=== PATIENT | female | born 1950 | race Caucasian/White ===

== ENCOUNTER 2019-07-29 12:56 | Inpatient (IN) | payer MEDICARE, SELFPAY ==
--- NOTE | ~2019-07-29 | XR_ITS ---
EXAMINATION: XR chest 1V DATE: 07/29/2019 16:15 INDICATION: Leukocytosis. Weakness. TECHNIQUE: frontal view of the chest was obtained. COMPARISON: Chest radiograph dated 03/08/2019 FINDINGS: Patient is rotated towards the right. Mild streaky bibasilar atelectasis. No pulmonary edema, pleural effusion or pneumothorax. Borderline heart size accounting for AP technique. Dual lead pacemaker see n with leads projecting over the expected locations of the right atrium and right ventricle. Calcifie d right paratracheal lymph node consistent with old granulomatous disease. IMPRESSION: 1. Mild bibasilar atelectasis. Reviewed, dictated and finalized at location A. OR HEALTH EDUCATOR
[2019-07-29 12:58] VITALS: BP 130/114; PULSE 88; RESP 23; TEMP 36.3; O2SAT 100
--- NOTE | 2019-07-29 13:01 | ED.WEAKNESS ---
HPI - Weakness General Chief complaint: Weakness Stated complaint: WEAKNESS Time Seen by Provider: 07/29/19 13:01 Source: patient and RN notes reviewed Mode of arrival: EMS Limitations: altered mental status History of Present Illness HPI Narrative: A 69 y/o female presents to the ED via EMS from home with worsening generalized weakness for the past 4 days. She states that she went home from rehab 4 days ago, after being there for 5 months, but that she has been unable to stand or sit since. She reports associated nausea with dry heaves and decreased intake. She also reports chronic BUE and BLE pain. She denies any fevers, chills, CP, SOB, vomiting, diarrhea, ABD pain, and any other medical complaints at this time. MD Complaint: generalized weakness Onset (ago): day(s) (4) Duration: progressively worsening Location: generalized Associated symptoms: loss of appetite, nausea/vomiting (with dry heaves, no vomiting) and other (chronic BUE and BLE pain) Related Data Home Medications Medication Instructions Recorded Confirmed docusate sodium [Colace] 100 mg PO BID 07/29/19 07/29/19 ergocalciferol (vitamin D2) 50,000 unit PO WEEKLY 07/29/19 07/29/19 [Vitamin D2] gabapentin 300 mg PO TID 07/29/19 07/29/19 ibuprofen 600 mg PO TID 07/29/19 07/29/19 insulin aspart U-100 [Novolog 1 sliding scale dose SUBCUT 07/29/19 07/29/19 U-100 Insulin aspart] USEASDIRECTD insulin glargine [Lantus Solostar 24 unit SUBCUT DAILY 07/29/19 07/29/19 U-100 Insulin] loratadine 10 mg PO DAILY 07/29/19 07/29/19 metoprolol succinate 25 mg PO DAILY 07/29/19 07/29/19 multivit with min-folic acid 0.4 mg PO DAILY 07/29/19 07/29/19 [Adult One Daily Multivitamin] omeprazole 20 mg PO DAILY 07/29/19 07/29/19 ondansetron 4 mg PO Q6H PRN 07/29/19 07/29/19 polyethylene glycol 3350 [Miralax] 17 g PO DAILY 07/29/19 07/29/19 prednisone 5 mg PO DAILY 07/29/19 07/29/19 rivaroxaban [Xarelto] 2.5 mg PO BID 07/29/19 07/29/19 Allergies Allergy/AdvReac Type Severity Reaction Status Date / Time codeine Allergy Intermediate Verified 06/17/17 10:31 Review of Systems Review of Systems: All systems reviewed & are unremarkable except as noted in HPI and below Constitutional: Constitutional: Denies chills, Denies fever(s), Denies headache(s), Reports poor appetite and Denies weakness Eyes: Eyes: Denies blurry vision ENT: Denies headache(s) and Denies neck pain Cardiovascular: Cardiovascular: Denies chest pain and Denies dyspnea Respiratory: Respiratory: Denies cough and Denies dyspnea Gastrointestinal: Gastrointestinal: Denies abdominal pain, Denies diarrhea, Reports nausea (with dry heaves) and Denies vomiting Genitourinary: Genitourinary: Denies hematuria and Denies dysuria Musculoskeletal: Musculoskeletal: Denies back pain, Denies neck pain and Reports other (chronic BUE and BLE pain) Neurologic: Denies headache(s) and Denies weakness [facility] Past Medical History Medical History (Updated 07/29/19 @ 20:27 by Nicolasa Brown MD) Amputation toe Anxiety Arthritis Asthma CHF (congestive heart failure) COPD (chronic obstructive pulmonary disease) DM (diabetes mellitus) DVT (deep venous thrombosis) H/O: HTN (hypertension) Heart murmur History of inguinal hernia History of kidney stones History of pneumonia Hx of fracture of foot Hx: UTI (urinary tract infection) Internal hemorrhoid Peripheral neuropathy Renal disease Shingles Surgical History Surgical History (Updated 07/29/19 @ 15:13 by Ruben Sims) History of appendectomy History of hysterectomy History of inguinal hernia repair History of thyroidectomy History of tonsillectomy Previous section Family History Family History (Updated 06/17/17 @ 00:00 by CONVUSER A) Brother Family history of coronary artery disease Family history of type 2 diabetes mellitus Mother Family history of pancreatic cancer Sister Familial Alzheimer's disease of late onset Social History Social Histor
--- NOTE | 2019-07-29 13:08 | ECG_ITS ---
Measurements Intervals Rarden Rate: 126 P: MS: 0 QRS: -40 QRSD: 92 T: 53 QT: 307 QTc: 446 Interpretive Statements ATRIAL FIBRILLATION WITH RAPID VENTRICULAR RESPONSE VENTRICULAR PREMATURE COMPLEX LEFT AXIS DEVIATION CANNOT RULE OUT SEPTAL INFARCT, AGE INDETERMINATE BORDERLINE ST-T WAVE ABNORMALITY- INF/LAT LEADS BASELINE ARTIFACT- I, III, AVR, AVL, AVF, V1-V3, V5-V6 ABNORMAL ECG Electronically Signed On 07-29-2019 13:29:22 [employer] TEAM MEMBER by Fox Fontaine D.O.
[2019-07-29 13:26] LABS: Basophils Percent Auto 0.2 % (0.2-1.2); Eosinophils Percent Auto 0.1 % (0-4.4); Hematocrit 42.7 % (37.0-47.0); Hemoglobin 14.1 g/dL (12.0-15.0); Immature Granulocyte Absolute 0.12 K/mm3 (0.00-0.031); Immature Granulocyte Percent A 0.6 % (0-0.5); Lymphocytes Absolute Auto 1.31 K/mm3 (0.9-3.2); Lymphocytes Percent Auto 6.8 % (18.3-44.2); Mean Corpuscular Hemoglobin 30.9 pg (26-34); Mean Corpuscular Volume 93.6 fl (80-100); Mean Platelet Volume 10.4 fl (7.4-10.4); Monocytes Absolute Auto 1.3 K/mm3 (0.1-0.6); Monocytes Percent Auto 6.9 % (2.6-8.5); Neutrophils Absolute Auto 16.4 K/mm3 (1.3-6.7); Neutrophils Percent Auto 85.4 % (45.5-73.1); Platelet Count Result 251 k/mm3 (150-375); Red Blood Count 4.56 M/mm3 (4.2-5.4); Red Cell Distribution Width 13.2 % (11.5-14.5); White Blood Count 19.2 K/mm3 (4.5-10.0)
[2019-07-29 13:36] LABS: Add Urine Microscopic? YES; Appearance Urine Clear (Clear); Bacteria Urine Trace /hpf; Bilirubin Urine Negative (Negative); Blood Urine 2+ (Negative); Color Urine Yellow (Yellow); Glucose Urine UA Negative (Negative); Ketones Urine Negative (Negative); Leukocyte Esterase Ur Negative LEU/UL (Negative); Nitrate Urine Negative (Negative); Protein Urine Negative (Negative); RBC Urine 0-2 /hpf (0-2); Urobilinogen Urine Negative mg/dL (<2.0); WBC Urine 0-3 /hpf
[2019-07-29 16:37] LABS: Alanine Aminotransferase 28 U/L (4-35); Albumin Level 3.5 g/dL (3.5-5.1); Alkaline Phosphatase 123 U/L (38-126); Aspartate Amino Transferase 88 U/L (14-36); Blood Urea Nitrogen 25 mg/dL (7-17); Carbon Dioxide 23 mmol/L (22-30); Chloride 105 mmol/L (98-107); Estimated CRCL calculation 48 ml/min; Estimated Glomerular Filt Rate 44; Glucose 187 mg/dL (65-105); Potassium 3.7 mmol/L (3.4-5.0); Sodium 141 mmol/L (137-145)
[2019-07-29 16:44] LABS: Troponin I 0.027 ng/mL (0.000-0.034)
[2019-07-29] MEDS: DILTIAZEM HCL 30 MG TABLET PO (17:44)
[2019-07-29 18:52] VITALS: BP 102/81; PULSE 73; RESP 16; O2SAT 97
[2019-07-29 19:18] VITALS: BP 98/58; PULSE 70; RESP 20; TEMP 36.5; O2SAT 90
--- NOTE | 2019-07-29 19:18 | ADMGEN ---
This patient, Yanira Campa, was admitted to IMU Room 214-01. Patient/family oriented to hospital policies and general routines including ID bracelet, bed and alarms, visiting hours, pain management, procedures, bathroom and other care routines, personal items, smoking policy, room service/diet, and visiting hours. Valuables list has been completed. Information on how to activate the Rapid Response Team has been discussed. Patient/Family are encouraged to report perceived risks to care and to ask questions if they do not understand what they are told or what they should do.
[2019-07-29 19:26] VITALS: PULSE 74
[2019-07-29 20:00] VITALS: PULSE 67
[2019-07-29 20:46] VITALS: BMI 45.1
[2019-07-29 21:02] LABS: Troponin I 0.043 ng/mL (0.000-0.034)
[2019-07-29 21:36] LABS: Glucose Point of Care 191 (65-105)
[2019-07-29 22:00] VITALS: PULSE 63
[2019-07-29 23:38] LABS: Troponin I 0.042 ng/mL (0.000-0.034)
[2019-07-30] VITALS (12 sets, daily range): BP systolic 107–140; BP diastolic 47–74; PULSE 57–79; RESP 16–20; TEMP 36.1–37.1; O2SAT 96–100
--- NOTE | 2019-07-30 | ECHO_ITS ---
Patient Info Name: Yanira Campa Age: 69 years : 1950 Gender: Female Ht: 65 in Wt: 271 lbs BSA: 2.44 m2 HR: 60 bpm BP: 107 / 47 mmHg Technical Quality: Poor Exam Date: 07/30/2019 9:42 AM Exam Location: [facility] Patient Status: Inpatient Admit Date: 07/29/2019 Staff Ordering Physician: Daniel Biggs MD Manager Of Clinical: Karen Young RDCS Attending Provider: Ericka Galeano PA-C Exam Type: CA echo dop color flow w con Study Info Complete two-dimensional, color flow and Doppler transthoracic echocardiogram is performed with contrast to opacify the left ventrical and to improve the deliniation of the left ventrical endocarial boarders. Contrast/Agitated Saline Amount: 2.00 ml Reason for Poor Study: poor echocardiographic windows Summary 1. Left ventricular systolic function is normal, estimated at 65-70%. 2. There is mildly increased left ventricular wall thickness. Left Ventricle Left ventricular chamber dimension is normal. Left ventricular systolic function is normal, estimated at 65-70%. There is mildly increased left ventricular wall thickness. Left ventricular septal wall motion is abnormal with septal motion related to bundle branch block. The left ventricular diastolic function is grade I diastolic dysfunction. Right Ventricle Right ventricular chamber dimension is normal. Right ventricular systolic function is normal. Left Atria Left atrial chamber dimension is mildly enlarged. Right Atria Right atrial chamber dimension is normal. Aortic Valve The aortic valve is trileaflet. There is no aortic valve sclerosis. There is no aortic valve stenosis. There is no aortic valve regurgitation. Pulmonic Valve The pulmonic valve is normal. There is no pulmonic valve stenosis. There is no pulmonic regurgitation. Mitral Valve The mitral valve has normal leaflets. There is no mitral valve stenosis. There is no mitral valve regurgitation. Tricuspid Valve The tricuspid valve leaflets are normal. There is no significant tricuspid valve stenosis. There is no tricuspid valve regurgitation. Pericardium/Pleural The pericardium appears normal. There is no pericardial effusion. Aorta The aortic root size at the sinus of Valsalva is normal. The prox ascending aorta size is normal. Left Ventricular Outflow Tract Name Value Normal LVOT 2D LVOT Diameter 2.34 cm LVOT Doppler LVOT Peak Velocity 116.69 cm/s LVOT Peak Gradient 5 mmHg LVOT Mean Gradient 2 mmHg LVOT VTI 19.29 cm LVOT VTI/AV VTI Ratio 0.74 LVOT Stroke Volume 83.22 ml LVOT CO 4.97 l/min LVOT CI 2.03 L/min/m2 Pulmonic Valve Name Value Normal PV Doppler
[2019-07-30 01:59] LABS: Alveolar/Arterial O2 Gradient 49.5 mmHg; Carboxyhemoglobin 0.9 % THb (0-2.0); Device ROOM AIR; Fractional Inspired Oxygen 21 %; HCO3 ABG 23.2 mEq/l (22.0-26.0); Methemoglobin ABG 0.2 %THb (0-1.5); Modified Allen's Test Pass; Oxygen Content ABG 16.6 %vol (16.0-22.0); Oxygen Saturation ABG 92.7 % (95.0-100.0); Oxyhemoglobin 91.3 % THb (90.0-100.0); PCO2 ABG 33.3 mmHg (35.0-45.0); PO2 ABG 60.4 mmHg (80.0-100.0); PO2 FiO2 Ratio Arterial Blood 2.88 %; Reduced Hemoglobin 7.6 %THb (0-5.0); Site Drawn RIGHT RADIAL; Total Hemoglobin 12.9 g/dL (12.0-18.0); pH ABG 7.461 (7.350-7.450)
[2019-07-30 07:47] LABS: Glucose Point of Care 178 (65-105)
[2019-07-30] MEDS: RIVAROXABAN 2.5 MG TABLET PO ×2 (08:33→17:53)
[2019-07-30] MEDS: DOCUSATE SODIUM 100 MG CAPSULE PO ×2 (08:33→17:53)
[2019-07-30] MEDS: LORATADINE 10 MG TABLET PO (08:33)
[2019-07-30] MEDS: GABAPENTIN 300 MG CAPSULE PO ×3 (08:33→17:53)
[2019-07-30] MEDS: PANTOPRAZOLE SOD SESQUIHYDRATE 20 MG TAB PO (08:33)
[2019-07-30] MEDS: predniSONE 5 MG TABLET PO (08:33)
[2019-07-30] MEDS: THERAPEUTIC MULTIVITAMINS/MINERALS TAB (*BKC) 1 TABLET PO (08:34)
[2019-07-30] MEDS: polyethylene glycoL 3350 17 GM POWD.PACK PO (08:34)
[2019-07-30] MEDS: INSULIN GLARGINE (*BKC) 100 UNITS/ML 24 UNITS SUB-Q (08:40)
--- NOTE | 2019-07-30 09:47 | PM.CNCAR ---
Assessment and Plan Assessment and plan (1) Paroxysmal atrial fibrillation: Code(s): I48.0 - Paroxysmal atrial fibrillation Status: Acute Assessment and Plan: She was on metoprolol and Xarelto, we added Cardizem for better rate control, currently she is back and paced rhythm (2) Weakness: Code(s): R53.1 - Weakness Status: Acute Assessment and Plan: Could be due to flow, will get echocardiogram to evaluate current status of left ventricular systolic function (3) Influenza A: Code(s): J10.1 - Influenza due to other identified influenza virus with other respiratory manifestations Status: Acute (4) Diastolic congestive heart failure: Code(s): I50.30 - Unspecified diastolic (congestive) heart failure Status: Acute Assessment and Plan: Will get echocardiogram and proceed with diuresis, follow up input Va sleep closely (5) Sick sinus syndrome: Code(s): I49.5 - Sick sinus syndrome Status: Acute Assessment and Plan: Status post recent pacemaker, seems to be pacing appropriately, will continue to follow Additional Plan Thank you for allowing me to participate in this patient's care, I will be following up with you. Please do not hesitate to call me for any other inquiry History of Present Illness History of Present Illness Consult date/time: 07/30/19 09:47 69-year-old lady with history of known sick sinus syndrome status post pacemaker placement, history of diabetes mellitus, and proximal atrial fibrillation came to the hospital because of weakness shortness of breath and cough, noted to have flu-like symptoms with possible influenza pneumonia, had episode of atrial fibrillation with rapid ventricular response, subsequently converted to sinus rhythm, currently she is in atrial paced rhythm, she had sick sinus syndrome with pacemaker placement recently, and that time she had atrial fibrillation also. We started on p.o. Cardizem and she is currently feeling okay. She is also on metoprolol, and Xarelto. She still has some cough and feeling generalized weakness due to flu, but no recent palpitation no syncope. Reason For Visit: a fib with RVR/weakness PMFSH Past Medical History Medical History (Updated 07/30/19 @ 09:49 by Daniel Biggs MD) Anxiety Arthritis Asthma COPD (chronic obstructive pulmonary disease) Diastolic CHF With grade 2 diastolic dysfunction noted on echocardiogram March 2017 but most recent echo January 2019 demonstrated normal diastolic function with EF of 60-65% DM (diabetes mellitus) Hemoglobin A1c October 2018 was 13.4 hemoglobin A1c February 2019 was 7.1 DVT (deep venous thrombosis) In 2004 due to prolonged inactivity Essential hypertension Heart murmur History of kidney stones History of pneumonia Hx of fracture of foot Internal hemorrhoid Noted on colonoscopy February 2015 Peripheral neuropathy With history complicated by prior diabetic foot wound Peripheral vascular disease Jo Ann 2013 Sick sinus syndrome With Medtronic pacemaker placement January [address] Biggs Surgical History Surgical History (Updated 07/29/19 @ 21:52 by Sharon Btucher DO) Amputated toe of right foot 2nd toe History of appendectomy History of hysterectomy History of thyroidectomy History of toe surgery ORIF of left toe 1989 History of tonsillectomy History of ventral hernia repair Complicated ventral hernia repair with mesh placement March 2015 Normal colonoscopy With internal hemorrhoids February 2015 Previous section Family History Family History (Updated 07/29/19 @ 21:56 by Sharon Butcher DO) Brother Diabetes mellitus Coronary artery disease Hypertension Mother Pancreatic cancer Sister Coronary artery disease, Onset Age: 60 Dementia Son Cerebral palsy WPW (Buyyc-Gqonrpkml-Bsjvw syndrome) Small bowel obstruction of complications of small-bowel obstruction Social His
--- NOTE | 2019-07-30 12:37 | PM.IMHP ---
H&P: HPI History of Present Illness Chief complaint: a fib with RVR/weakness Narrative: Yanira Campa is a 69 year old female who presented emergency room for weakness and unbearable pain all over. Patient states that she came home from her 5 month rehab stay and walked up her stairs and sat on her couch and did not move since. Patient cannot recall exact days but states that on Thursday night she started feeling worse than she usually does. She says she has chronic leg and arm pain but it got increasingly worse. Her said she had a fever but they did not check it. She then started having a low appetite and having some nausea. She says she did not get up since Thursday until she came to the hospital on Thursday. She did, however use the commode a couple times a day but that was it. She said that she started having a cough about a week ago and has been progressively getting worse. It is a dry cough and not producing any sputum. She said when she was in rehab her roommate had a significant cough the entire time she was there. She admits to some constipation, arm and leg pain, and generalized weakness. She denies dysuria, sick contacts, stomach pain, chest pain, shortness of breath, or headaches. She says she has a history of a blood clot in her left leg that was unprovoked but she takes the anticoagulation for atrial fibrillation. She says that when she was at the rehab center she was able to walk 50-60 feet with a wheeled walker. Overall, she does have chronic pain but denies fibromyalgia and says her chronic pain is much worse than her usual. Review of Systems Review of Systems: All systems reviewed & are unremarkable except as noted in HPI and below [facility] Past Medical History Medical History (Updated 07/30/19 @ 12:49 by Ericka Galeano PA-C) Anxiety Arthritis Asthma COPD (chronic obstructive pulmonary disease) Diastolic CHF With grade 2 diastolic dysfunction noted on echocardiogram March 2017 but most recent echo January 2019 demonstrated normal diastolic function with EF of 60-65% DM (diabetes mellitus) Hemoglobin A1c October 2018 was 13.4 hemoglobin A1c February 2019 was 7.1 DVT (deep venous thrombosis) In 2004 due to prolonged inactivity Essential hypertension Heart murmur History of pneumonia Hx of fracture of foot Internal hemorrhoid Noted on colonoscopy February 2015 Peripheral neuropathy With history complicated by prior diabetic foot wound Peripheral vascular disease Shingles 2013 Sick sinus syndrome With Medtronic pacemaker placement [address] Biggs Surgical History Surgical History (Updated 07/30/19 @ 12:49 by Ericka Galeano PA-C) Amputated toe of right foot 2nd toe History of appendectomy History of toe surgery ORIF of left toe 1989 History of tonsillectomy History of ventral hernia repair Complicated ventral hernia repair with mesh placement March 2015 Normal colonoscopy With internal hemorrhoids February 2015 Previous section Family History Family History (Updated 07/29/19 @ 21:56 by Sharon Butcher DO) Brother Diabetes mellitus Coronary artery disease Hypertension Mother Pancreatic cancer Sister Coronary artery disease, Onset Age: 60 Dementia Son Cerebral palsy WPW (Oeyao-Yjqfxrqyx-Mmewf syndrome) Small bowel obstruction of complications of small-bowel obstruction Social History Social History (Updated 07/29/19 @ 21:59 by Sharon Butcher DO) Social History: Code status: Full code per ear Primary care physician: Dr. Jaden Alfredo Smoking status: Never smoker Alcohol intake: never Substance use: never Living arrangements: with family Additional living arrangements comments: She lives with her of 47 years. She ambulates with assistive devices. 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 Gender identity (if verbalized by
[2019-07-30 12:48] LABS: Basophils Percent Auto 0.1 % (0.2-1.2); Eosinophils Absolute Auto 0.1 K/mm3 (0-0.3); Eosinophils Percent Auto 0.4 % (0-4.4); Hematocrit 38.8 % (37.0-47.0); Hemoglobin 12.5 g/dL (12.0-15.0); Immature Granulocyte Absolute 0.11 K/mm3 (0.00-0.031); Immature Granulocyte Percent A 0.8 % (0-0.5); Lymphocytes Absolute Auto 1.51 K/mm3 (0.9-3.2); Lymphocytes Percent Auto 10.7 % (18.3-44.2); Mean Corpuscular HGB Conc 32.2 g/dl (32-36); Mean Corpuscular Hemoglobin 30.3 pg (26-34); Mean Corpuscular Volume 94.2 fl (80-100); Mean Platelet Volume 10.6 fl (7.4-10.4); Monocytes Percent Auto 6.8 % (2.6-8.5); Neutrophils Absolute Auto 11.4 K/mm3 (1.3-6.7); Neutrophils Percent Auto 81.2 % (45.5-73.1); Platelet Count Result 255 k/mm3 (150-375); Red Blood Count 4.12 M/mm3 (4.2-5.4); Red Cell Distribution Width 13.3 % (11.5-14.5); White Blood Count 14.1 K/mm3 (4.5-10.0)
[2019-07-30 13:01] LABS: Alanine Aminotransferase 30 U/L (4-35); Albumin Level 3.3 g/dL (3.5-5.1); Alkaline Phosphatase 131 U/L (38-126); Aspartate Amino Transferase 64 U/L (14-36); Blood Urea Nitrogen 23 mg/dL (7-17); Calcium 9.2 mg/dL (8.4-10.2); Carbon Dioxide 24 mmol/L (22-30); Chloride 106 mmol/L (98-107); Creatine Kinase 803 U/L (30-135); Estimated CRCL calculation 60 ml/min; Estimated Glomerular Filt Rate 55; Glucose 230 mg/dL (65-105); Potassium 3.9 mmol/L (3.4-5.0); Sodium 142 mmol/L (137-145)
[2019-07-30] MEDS: INSULIN ASPART (*BKC) 100 UNITS/ML SUB-Q (13:25)
[2019-07-30] MEDS: ACETAMINOPHEN 325 MG TABLET 650 MG PO ×2 (13:25→21:11)
--- NOTE | 2019-07-30 13:57 | PC.NURSE ---
This patient, Yanira Campa, was transferred to [facility] on 07/30/19 at 1357. Personal belongings sent with patient. Belongings list checked and signed with receiving RN. Report given to TEDDY Mondragon. Appropriate documentation sent with patient.
--- NOTE | 2019-07-30 15:04 | PC.NURSE ---
Patient received from IMU on 07/30/2019 at 1350. Belonging list verified, patient placed on isolation for droplet precautions.
[2019-07-30 17:38] LABS: Glucose Point of Care 215 (65-105)
[2019-07-30 19:22] LABS: Glucose Point of Care 145 (65-105)
[2019-07-30] MEDS: TOLNAFTATE 1% POWDER 45 GM BTL 1 APPLIC TOPICAL (21:13)
[2019-07-30] MEDS: INSULIN GLARGINE (*BKC) 100 UNITS/ML 10 UNITS SUB-Q (21:24)
[2019-07-30 21:35] LABS: Glucose Point of Care 184 (65-105)
[2019-07-31] VITALS (12 sets, daily range): BP systolic 116–136; BP diastolic 57–83; PULSE 59–67; RESP 16–18; TEMP 36.1–36.8; O2SAT 97–100
[2019-07-31 05:38] LABS: Basophils Percent Auto 0.2 % (0.2-1.2); Eosinophils Absolute Auto 0.3 K/mm3 (0-0.3); Eosinophils Percent Auto 2.2 % (0-4.4); Hematocrit 38.7 % (37.0-47.0); Hemoglobin 12.4 g/dL (12.0-15.0); Immature Granulocyte Absolute 0.09 K/mm3 (0.00-0.031); Immature Granulocyte Percent A 0.6 % (0-0.5); Lymphocytes Absolute Auto 2.01 K/mm3 (0.9-3.2); Lymphocytes Percent Auto 14.1 % (18.3-44.2); Mean Corpuscular Hemoglobin 30.7 pg (26-34); Mean Corpuscular Volume 95.8 fl (80-100); Mean Platelet Volume 10.6 fl (7.4-10.4); Monocytes Percent Auto 7.2 % (2.6-8.5); Neutrophils Absolute Auto 10.8 K/mm3 (1.3-6.7); Neutrophils Percent Auto 75.7 % (45.5-73.1); Platelet Count Result 265 k/mm3 (150-375); Red Blood Count 4.04 M/mm3 (4.2-5.4); Red Cell Distribution Width 13.6 % (11.5-14.5); White Blood Count 14.2 K/mm3 (4.5-10.0)
[2019-07-31 05:57] LABS: Alanine Aminotransferase 29 U/L (4-35); Albumin Level 3.1 g/dL (3.5-5.1); Alkaline Phosphatase 121 U/L (38-126); Aspartate Amino Transferase 51 U/L (14-36); Bilirubin,Total 0.7 mg/dL (0.2-1.3); Blood Urea Nitrogen 21 mg/dL (7-17); Calcium 9.1 mg/dL (8.4-10.2); Carbon Dioxide 28 mmol/L (22-30); Chloride 107 mmol/L (98-107); Creatine Kinase 332 U/L (30-135); Estimated CRCL calculation 73 ml/min; Estimated Glomerular Filt Rate > 60; Glucose 125 mg/dL (65-105); Magnesium 2.1 mg/dL (1.6-2.3); Phosphorus 2.2 mg/dL (2.5-4.5); Potassium 3.4 mmol/L (3.4-5.0); Sodium 145 mmol/L (137-145)
[2019-07-31] MEDS: polyethylene glycoL 3350 17 GM POWD.PACK PO (08:42)
[2019-07-31] MEDS: THERAPEUTIC MULTIVITAMINS/MINERALS TAB (*BKC) 1 TABLET PO (08:43)
[2019-07-31] MEDS: RIVAROXABAN 2.5 MG TABLET PO ×2 (08:43→16:25)
[2019-07-31] MEDS: LORATADINE 10 MG TABLET PO (08:43)
[2019-07-31] MEDS: METOPROLOL SUCCINATE EXT REL 25 MG TABCR PO (08:43)
[2019-07-31] MEDS: GABAPENTIN 300 MG CAPSULE PO ×3 (08:43→16:25)
[2019-07-31] MEDS: predniSONE 5 MG TABLET PO (08:43)
[2019-07-31] MEDS: DOCUSATE SODIUM 100 MG CAPSULE PO ×2 (08:43→16:25)
[2019-07-31] MEDS: PANTOPRAZOLE SOD SESQUIHYDRATE 20 MG TAB PO (08:43)
[2019-07-31] MEDS: TOLNAFTATE 1% POWDER 45 GM BTL 1 APPLIC TOPICAL ×2 (08:44→21:34)
[2019-07-31] MEDS: POTASSIUM/PHOSPHORUS/SODIUM 1.5 GM PACKET 1 PACKET PO (10:11)
--- NOTE | 2019-07-31 11:07 | PM.PNCARD ---
Progress Note: A&P Assessment and Plan (1) Paroxysmal atrial fibrillation: Code(s): I48.0 - Paroxysmal atrial fibrillation Status: Acute Assessment and Plan: She was on metoprolol and Xarelto, we added Cardizem for better rate control, currently she is back and paced rhythm (2) Weakness: Code(s): R53.1 - Weakness Status: Acute Assessment and Plan: Could be due to flow, will get echocardiogram to evaluate current status of left ventricular systolic function (3) Influenza A: Code(s): J10.1 - Influenza due to other identified influenza virus with other respiratory manifestations Status: Acute (4) Diastolic congestive heart failure: Code(s): I50.30 - Unspecified diastolic (congestive) heart failure Status: Acute Assessment and Plan: Echocardiogram with normal left ventricular systolic function, seems to be well compensated now (5) Sick sinus syndrome: Code(s): I49.5 - Sick sinus syndrome Status: Acute Assessment and Plan: Status post recent pacemaker, seems to be pacing appropriately, will continue to follow Subjective Date/time seen: 07/31/19 11:07 She feels better today, shortness breath and cough improved, no palpitation no chest pain Exam Narrative: Exam Narrative: Awake alert oriented x3 not in acute distress Neck is supple no obvious JVD, no carotid bruit Chest: Good air entry bilaterally, lungs are clear to auscultation and percussion bilaterally Cardiovascular: Regular rate and rhythm, 2/6 systolic murmur noted left sternal border Abdomen: Soft nontender bowel sounds positive Extremities: Significant skin discoloration with edema bilaterally Objective Data Vital Signs Vital Signs: Vital Signs - 24 hr 07/30/19 12:00 07/30/19 16:00 07/30/19 18:00 Temperature 36.2 C L 37.1 C Pulse Rate 61 62 61 Respiratory Rate 16 20 Blood Pressure 120/74 140/69 Pulse Oximetry 96 97 07/30/19 22:57 07/31/19 00:00 07/31/19 04:00 Temperature 36.4 C 36.1 C L Pulse Rate 57 L 67 60 Respiratory Rate 18 18 Blood Pressure 135/61 130/60 Pulse Oximetry 100 97 07/31/19 05:47 07/31/19 06:58 07/31/19 08:43 Temperature 36.2 C L Pulse Rate 59 L 60 60 Respiratory Rate 16 Blood Pressure 136/83 Pulse Oximetry 100 07/31/19 10:00 Temperature 36.4 C Pulse Rate 60 Respiratory Rate 16 Blood Pressure 127/59 L Pulse Oximetry 97 Intake/Output Intake/Output: Intake & Output 07/28/19 07/29/19 07/30/19 07/31/19 23:59 23:59 23:59 23:59 Intake Total 250 420 Output Total 1000 600 Balance -750 -180 Meds/Results Medications: Active Medications Generic Name Dose Route Start Last Admin Trade Name Freq PRN Reason Stop Dose Admin Acetaminophen 650 mg 07/30/19 09:14 07/30/19 21:11 Tylenol Tablet PO 650 mg Q6H PRN Administration Mild Pain (1-3) or Fever Dextrose 12.5 gm 07/29/19 21:37 Dextrose 50% Syringe IV PUSH PRN PRN Hypoglycemia Protocol Docusate Sodium 100 mg 07/30/19 09:00 07/31/19 08:43 Colace Capsule PO 100 mg BID RUBEN Administration Ergocalciferol 50,000 unit 08/08/19 09:00 Drisdol PO Mo@0900 RUBEN Gabapentin 300 mg 07/30/19 09:00 07/31/19 08:43 Neurontin PO 300 mg TID RUBEN Administration Glucagon 1 mg 07/29/19 21:37 Glucagon For Inj IM PRN PRN Hypoglycemia Protocol Glucose 15 gm 07/29/19 21:37 Glutose 15 PO PRN PRN Hypoglycemia Protocol Dextrose 1,000 mls @ 100 mls/hr 07/29/19 21:37 Dextrose 5% 1,000 Ml IVPB PRN PRN Hypoglycemia Protocol Insulin Aspart 3 - 6 units 07/30/19 08:00 07/31/19 08:44 Novolog SUB-Q Not Given TIDWM RUBEN Protocol Insulin Glargine 10 units 07/30/19 21:00 07/30/19 21:24 Lantus SUB-Q 10 units HS RUBEN Administration Loratadine 10 mg 07/30/19 09:00 07/31/19 08:43 Claritin PO 10 mg DAILY RUBEN Administration
[2019-07-31 11:36] LABS: Glucose Point of Care 132 (65-105)
--- NOTE | 2019-07-31 11:42 | PM.IMPN ---
Progress Note: A&P Assessment and Plan (1) Influenza A: Code(s): J10.1 - Influenza due to other identified influenza virus with other respiratory manifestations Status: Acute Assessment and Plan: -----patient is positive for influenza A but since symptoms started on Thursday she is outside the window for Tamiflu. Will continue supportive treatment.CK improving with fluids. Viral vs sedentary. (2) Paroxysmal atrial fibrillation: Code(s): I48.0 - Paroxysmal atrial fibrillation Status: Acute Assessment and Plan: -----known atrial fibrillation EKG January 2019. Last heart rate 60 beats per minute. No signs of RVR documented since admission. Troponins are slightly elevated but could likely be due to influenza and less likely ACS. Patient has absolutely no chest pain. Cardiology consulted. Continue metoprolol and Xarelto. (3) Weakness: Code(s): R53.1 - Weakness Status: Acute Assessment and Plan: -----patient just finished rehab stay for weakness in that she has the flu she has been more sedentary. Pt refused to get out of bed yesterday. Discussed with her and nurse about getting out of bed. She won't be able to go home if she is a max assist. She may need rat exterminator placement or additional SNF. (4) Leukocytosis: Qualifiers: Leukocytosis type: unspecified Qualified Code(s): D72.829 - Elevated white blood cell count, unspecified Code(s): D72.829 - Elevated white blood cell count, unspecified Status: Acute Assessment and Plan: -----initial white blood cell count elevated at 19.2 now 14.2. Likely due to influenza and possibly dehydration. monitor (5) Diastolic congestive heart failure: Code(s): I50.30 - Unspecified diastolic (congestive) heart failure Status: Acute Assessment and Plan: -----patient appears euvolemic at this time. Continue home medications (6) Respiratory alkalosis: Code(s): E87.3 - Alkalosis Status: Acute Assessment and Plan: -----noted on ABGs. CO2 mildly low likely due to hyperventilating. Appears chronic. (7) DM (diabetes mellitus): Code(s): E11.9 - Type 2 diabetes mellitus without complications Status: Acute Assessment and Plan: -----patient is not eating much 132. Will continue sliding scale insulin at this time and hold long-acting insulin since she still does not have an appetite. (8) Pressure ulcer, stage 1: Code(s): L89.91 - Pressure ulcer of unspecified site, stage 1 Status: Acute Assessment and Plan: -----Mepilex ordered. Q2 turns and out of bed for meals. (9) Elevated AST (SGOT): Code(s): R74.0 - Nonspecific elevation of levels of transaminase and lactic acid dehydrogenase [LDH] Status: Acute Assessment and Plan: -----mildly elevated. Likely due to rhabdomyolysis. Consider fatty liver. Will monitor. (10) Elevated troponin: Code(s): R79.89 - Other specified abnormal findings of blood chemistry Status: Acute Assessment and Plan: -----likely due to influenza. See above. (11) Rhabdomyolysis: Code(s): M62.82 - Rhabdomyolysis Status: Acute Assessment and Plan: -----likely d/t sedentary lifestyle from the last week. Could also be viral. Improving. Additional Plan . Time Spent With Patient Time with patient: 25 - 35 minutes Subjective Date/time seen: 07/31/19 11:42 Interval history: Pt is a 69-year-old female here for influenza and rhabdomyolysis. Patient was seen today and states that she is in generalized pain all over but states that it is mildly better than yesterday. She is still not gotten out of bed. Pt denies nausea, vomiting, fevers, chills, constipation, diarrhea, chest pain, sob, or abdominal pain. Review of Systems Review of Systems: All systems reviewed & are unremarkable except as noted in
[2019-07-31 12:56] LABS: Glucose Point of Care 198 (65-105)
[2019-07-31] MEDS: PREGABALIN 50 MG CAPSULE PO ×2 (13:58→21:34)
[2019-07-31] MEDS: ACETAMINOPHEN 325 MG TABLET 650 MG PO (14:06)
[2019-07-31 18:06] LABS: Glucose Point of Care 191 (65-105)
[2019-07-31] MEDS: INSULIN GLARGINE (*BKC) 100 UNITS/ML 10 UNITS SUB-Q (21:30)
[2019-07-31] MEDS: MUPIROCIN 2% OINT 22 GM TUBE 1 APPLIC EACH NARE (21:35)
[2019-07-31 21:53] LABS: Glucose Point of Care 210 (65-105)
[2019-08-01] VITALS (14 sets, daily range): BP systolic 104–124; BP diastolic 51–78; PULSE 59–126; RESP 14–22; TEMP 36.1–37.4; O2SAT 96–100
--- NOTE | 2019-08-01 03:25 | ECG_ITS ---
Measurements Intervals [place] Rate: 123 P: NC: 0 QRS: -35 QRSD: 102 T: -9 QT: 332 QTc: 476 Interpretive Statements ATRIAL FIBRILLATION WITH RAPID VENTRICULAR RESPONSE LEFT AXIS DEVIATION BORDERLINE R WAVE PROGRESSION, ANTERIOR LEADS BORDERLINE ST-T WAVE ABNORMALITY- INF/LAT LEADS BASELINE ARTIFACT- II, III, AVR, AVL, AVF, V1, V4-V6 ABNORMAL ECG Electronically Signed On 08-01-2019 12:52:54 CUSTOM DESIGNER by Fox Fontaine D.O.
[2019-08-01] MEDS: METOPROLOL TARTRATE INJ 5 MG/5 ML VIAL IV PUSH (04:19)
[2019-08-01] MEDS: ACETAMINOPHEN 325 MG TABLET 650 MG PO ×2 (05:42→12:30)
[2019-08-01 06:05] LABS: Hematocrit 41.7 % (37.0-47.0); Hemoglobin 13.1 g/dL (12.0-15.0); Mean Corpuscular HGB Conc 31.4 g/dl (32-36); Mean Corpuscular Hemoglobin 30.3 pg (26-34); Mean Corpuscular Volume 96.3 fl (80-100); Mean Platelet Volume 10.4 fl (7.4-10.4); Platelet Count Result 306 k/mm3 (150-375); Red Blood Count 4.33 M/mm3 (4.2-5.4); Red Cell Distribution Width 13.5 % (11.5-14.5); White Blood Count 15.4 K/mm3 (4.5-10.0)
[2019-08-01] MEDS: METOPROLOL SUCCINATE EXT REL 25 MG TABCR PO ×2 (06:16→20:31)
[2019-08-01 06:21] LABS: Blood Urea Nitrogen 15 mg/dL (7-17); Calcium 8.7 mg/dL (8.4-10.2); Carbon Dioxide 31 mmol/L (22-30); Chloride 106 mmol/L (98-107); Creatine Kinase 92 U/L (30-135); Estimated CRCL calculation 73 ml/min; Estimated Glomerular Filt Rate > 60; Glucose 171 mg/dL (65-105); Phosphorus 2.1 mg/dL (2.5-4.5); Potassium 3.3 mmol/L (3.4-5.0); Sodium 146 mmol/L (137-145)
[2019-08-01 07:30] LABS: Glucose Point of Care 177 (65-105)
[2019-08-01] MEDS: GABAPENTIN 300 MG CAPSULE PO ×3 (09:04→17:40)
[2019-08-01] MEDS: DOCUSATE SODIUM 100 MG CAPSULE PO ×2 (09:04→17:40)
[2019-08-01] MEDS: PREGABALIN 50 MG CAPSULE PO ×2 (09:04→20:31)
[2019-08-01] MEDS: POTASSIUM PHOS,M-BASIC-D-BASIC 20 MMOL in SODIUM CHLORIDE 0.9% IV 250 ML 64 MMOL IVPB (09:04)
[2019-08-01] MEDS: LORATADINE 10 MG TABLET PO (09:05)
[2019-08-01] MEDS: PANTOPRAZOLE SOD SESQUIHYDRATE 20 MG TAB PO (09:05)
[2019-08-01] MEDS: RIVAROXABAN 2.5 MG TABLET PO (09:05)
[2019-08-01] MEDS: THERAPEUTIC MULTIVITAMINS/MINERALS TAB (*BKC) 1 TABLET PO (09:06)
[2019-08-01] MEDS: TOLNAFTATE 1% POWDER 45 GM BTL 1 APPLIC TOPICAL ×2 (09:06→20:34)
[2019-08-01] MEDS: MUPIROCIN 2% OINT 22 GM TUBE 1 APPLIC EACH NARE ×2 (09:06→20:34)
[2019-08-01] MEDS: predniSONE 5 MG TABLET PO (09:06)
--- NOTE | 2019-08-01 12:31 | PM.PNCARD ---
Progress Note: A&P Assessment and Plan (1) Paroxysmal atrial fibrillation: Code(s): I48.0 - Paroxysmal atrial fibrillation Status: Acute Assessment and Plan: She is on metoprolol and Xarelto, will increase Xarelto dose to full anticoagulation, in view of her current atrial fibrillation, will increase metoprolol to 25 b.i.d. (2) Weakness: Code(s): R53.1 - Weakness Status: Acute Assessment and Plan: Could be due to flow, will get echocardiogram to evaluate current status of left ventricular systolic function (3) Influenza A: Code(s): J10.1 - Influenza due to other identified influenza virus with other respiratory manifestations Status: Acute (4) Diastolic congestive heart failure: Code(s): I50.30 - Unspecified diastolic (congestive) heart failure Status: Acute Assessment and Plan: Echocardiogram with normal left ventricular systolic function, seems to be well compensated now (5) Sick sinus syndrome: Code(s): I49.5 - Sick sinus syndrome Status: Acute Assessment and Plan: Status post recent pacemaker, seems to be pacing appropriately, will continue to follow Additional Plan Please do not hesitate to call me for any other inquiry Subjective Date/time seen: 08/01/19 12:31 She feels okay today, had 1 episode of tachycardia seems to be atrial fibrillation with rapid ventricular response, she was given IV Lopressor which improved her heart rate and she went back down to atrial paced rhythm. Currently she feels okay she has pain in her legs had not been active. No more shortness of breath no more cough no chest pain Exam Narrative: Exam Narrative: Awake alert oriented x3 not in acute distress Neck is supple no obvious JVD, no carotid bruit Chest: Good air entry bilaterally, lungs are clear to auscultation and percussion bilaterally Cardiovascular: Regular rate and rhythm, 2/6 systolic murmur noted left sternal border Abdomen: Soft nontender bowel sounds positive Extremities: Significant skin discoloration with edema bilaterally Objective Data Vital Signs Vital Signs: Vital Signs - 24 hr 07/31/19 14:00 07/31/19 16:00 07/31/19 18:00 Temperature 36.6 C 36.7 C Pulse Rate 60 61 59 L Respiratory Rate 16 16 Blood Pressure 121/57 L 127/64 Pulse Oximetry 97 97 07/31/19 20:00 08/01/19 00:00 08/01/19 03:02 Temperature 36.8 C 36.8 C Pulse Rate 60 108 H 94 Respiratory Rate 16 20 Blood Pressure 116/57 L 122/68 Pulse Oximetry 99 96 08/01/19 04:00 08/01/19 04:19 08/01/19 06:00 Temperature 36.7 C Pulse Rate 103 H 126 H 96 Respiratory Rate 20 Blood Pressure 104/68 Pulse Oximetry 98 08/01/19 06:16 08/01/19 08:00 08/01/19 09:59 Temperature 36.5 C Pulse Rate 126 H 61 59 L Respiratory Rate 14 Blood Pressure 109/51 L Pulse Oximetry 100 Intake/Output Intake/Output: Intake & Output 07/29/19 07/30/19 07/31/19 08/01/19 23:59 23:59 23:59 23:59 Intake Total 250 1560 880 Output Total 1000 1800 1400 Balance -750 240 520 Meds/Results Medications: Active Medications Generic Name Dose Route Start Last Admin Trade Name Freq PRN Reason Stop Dose Admin Acetaminophen 650 mg 07/30/19 09:14 08/01/19 05:42 Tylenol Tablet PO 650 mg Q6H PRN Administration Mild Pain (1-3) or Fever Dextrose 12.5 gm 07/29/19 21:37 Dextrose 50% Syringe IV PUSH PRN PRN Hypoglycemia Protocol Docusate Sodium 100 mg 07/30/19 09:00 08/01/19 09:04 Colace Capsule PO 100 mg BID RUBEN Administration Ergocalciferol 50,000 unit 08/08/19 09:00 Drisdol PO Mo@0900 RUBEN Gabapentin 300 mg 07/30/19 09:00 08/01/19 09:04 Neurontin PO 300 mg TID RUBEN Administration Glucagon 1 mg 07/29/19 21:37 Glucagon For Inj IM PRN PRN Hypoglycemia Protocol Glucose 15 gm 07/29/19 21:37 Glutose 15 PO PRN PRN Hypoglycemia Protocol Dextrose 1,
[2019-08-01 12:43] LABS: Glucose Point of Care 178 (65-105)
--- NOTE | 2019-08-01 14:17 | PM.IMPN ---
Progress Note: A&P Assessment and Plan (1) Influenza A: Code(s): J10.1 - Influenza due to other identified influenza virus with other respiratory manifestations <Ericka ZeynepCarlos Galeano PA-C - Last Filed: 08/01/19 14:28> Status: Acute <Ericka AdhikariCarlos Galeano PA-C - Last Filed: 08/01/19 14:28> Assessment and Plan: -----patient is positive for influenza A but since symptoms started on Thursday she is outside the window for Tamiflu. Will continue supportive treatment.CK improving with fluids.. <Erickacharlotte Galeano PA-C - Last Filed: 08/01/19 14:28> (2) Paroxysmal atrial fibrillation: Code(s): I48.0 - Paroxysmal atrial fibrillation <Erickacharlotte Galeano PA-C - Last Filed: 08/01/19 14:28> Status: Acute <Ericka ZeynepCarlos Galeano PA-C - Last Filed: 08/01/19 14:28> Assessment and Plan: -----known atrial fibrillation EKG January 2019. Last heart rate 60 bpm but was up to [address] perez is adjusting medications and we will see how she does with those. Troponins were slightly elevated on admission but could likely be due to influenza and less likely ACS. Patient has absolutely no chest pain. Cardiology consulted. Continue metoprolol and Xarelto at increased doses. <Erickacharlotte Galeano PA-C - Last Filed: 08/01/19 14:28> (3) Weakness: Code(s): R53.1 - Weakness <Ericka ZeynepCarlos Galeano PA-C - Last Filed: 08/01/19 14:28> Status: Acute <Ericka ZeynepCarlos Galeano PA-C - Last Filed: 08/01/19 14:28> Assessment and Plan: -----patient just finished rehab stay for weakness and now that she has the flu she has been more sedentary. Pt refused to get out of bed yesterday initially but now is able to get to chair with a kay lift. Discussed with her and nurse about getting out of bed. She won't be able to go home if she is a max assist. She will need ad terminal makeup operator placement or additional SNF. <Ericka Galeano, PA-C - Last Filed: 08/01/19 14:28> (4) Leukocytosis: Qualifiers: Leukocytosis type: unspecified Qualified Code(s): D72.829 - Elevated white blood cell count, unspecified <Erickacharlotte Galeano, PA-C - Last Filed: 08/01/19 14:28> Code(s): D72.829 - Elevated white blood cell count, unspecified <Erickacharlotte Galeano, PA-C - Last Filed: 08/01/19 14:28> Status: Acute <Erickacharlotte Galeano, PA-C - Last Filed: 08/01/19 14:28> Assessment and Plan: -----initial white blood cell count elevated at 19.2 now 15.2. Likely due to influenza. UA neg. CXR neg for PNA. Will monitor <Erickacharlotte Galeano, PA-C - Last Filed: 08/01/19 14:28> (5) Diastolic congestive heart failure: Code(s): I50.30 - Unspecified diastolic (congestive) heart failure <Erickacharlotte Galeano, PA-C - Last Filed: 08/01/19 14:28> Status: Acute <Ericka Xiomara Galeano, PA-C - Last Filed: 08/01/19 14:28> Assessment and Plan: -----patient appears euvolemic at this time. Continue home medications <Erickacharlotte Galeano, PA-C - Last Filed: 08/01/19 14:28> (6) Respiratory alkalosis: Code(s): E87.3 - Alkalosis <Erickacharlotte Galeano, PA-C - Last Filed: 08/01/19 14:28> Status: Acute <Ericka ACarlos Galeano, PA-C - Last Filed: 08/01/19 14:28> Assessment and Plan: -----noted on ABGs. CO2 mildly low likely due to hyperventilating. Appears chronic. <Ericka ACarlos Galeano, PA-C - Last Filed: 08/01/19 14:28> (7) DM (diabetes mellitus): Code(s): E11.9 - Type 2 diabetes mellitus without complications <Ericka ACarlos Sharpbasilio, PA-C - Last Filed: 08/01/19 14:28> Status: Acute <Ericka Galeano PA-C - Last Filed: 08/01/19 14:28> Assessment and Plan: -----Last glucose 178. Will continue sliding scale insulin at this time and hold long-acting insulin since she still does not have much of an appetite. <Ericka Galeano PA-C - Last Filed: 08/01/19 14:28> (8) Pressure ulcer, stage 1: Cod
[2019-08-01] MEDS: POTASSIUM CHLORIDE 20 MEQ TABLET 40 MEQ PO (15:47)
[2019-08-01] MEDS: RIVAROXABAN 20 MG TABLET PO (15:47)
--- NOTE | 2019-08-01 16:10 | PCCCNOTE ---
On 08/01/19, the student, [Judie Li ], provided care and completed [facility]. I have reviewed the student's documentation and agree with the findings.
[2019-08-01 17:47] LABS: Glucose Point of Care 291 (65-105)
--- NOTE | 2019-08-01 18:05 | PC.NURSE ---
On 08/01/19, the graduate nurse, Anthony Valladares RN, provided care and completed [facility] documentation on this patient. I have reviewed the student's documentation and agree with the findings.
[2019-08-01] MEDS: INSULIN ASPART (*BKC) 100 UNITS/ML SUB-Q (18:21)
[2019-08-01] MEDS: INSULIN GLARGINE (*BKC) 100 UNITS/ML 10 UNITS SUB-Q (20:32)
[2019-08-01 20:54] LABS: Glucose Point of Care 176 (65-105)
[2019-08-02] VITALS (7 sets, daily range): BP systolic 110–130; BP diastolic 51–76; PULSE 60–68; RESP 16–22; TEMP 36.3–36.7; O2SAT 96–100
[2019-08-02 06:08] LABS: Hemoglobin 12.6 g/dL (12.0-15.0); Mean Corpuscular HGB Conc 32.3 g/dl (32-36); Mean Corpuscular Hemoglobin 30.7 pg (26-34); Mean Corpuscular Volume 94.9 fl (80-100); Mean Platelet Volume 10.3 fl (7.4-10.4); Platelet Count Result 284 k/mm3 (150-375); Red Blood Count 4.11 M/mm3 (4.2-5.4); Red Cell Distribution Width 13.5 % (11.5-14.5); White Blood Count 10.3 K/mm3 (4.5-10.0)
[2019-08-02 06:32] LABS: Alanine Aminotransferase 25 U/L (4-35); Albumin Level 2.8 g/dL (3.5-5.1); Alkaline Phosphatase 110 U/L (38-126); Aspartate Amino Transferase 25 U/L (14-36); Bilirubin,Total 0.3 mg/dL (0.2-1.3); Blood Urea Nitrogen 14 mg/dL (7-17); Calcium 8.7 mg/dL (8.4-10.2); Carbon Dioxide 27 mmol/L (22-30); Chloride 108 mmol/L (98-107); Estimated CRCL calculation 105 ml/min; Estimated Glomerular Filt Rate > 60; Glucose 173 mg/dL (65-105); Phosphorus 3.3 mg/dL (2.5-4.5); Potassium 3.9 mmol/L (3.4-5.0); Sodium 146 mmol/L (137-145)
--- NOTE | 2019-08-02 08:17 | PM.PNCARD ---
Progress Note: A&P Assessment and Plan (1) Paroxysmal atrial fibrillation: Code(s): I48.0 - Paroxysmal atrial fibrillation Status: Acute Assessment and Plan: She is on metoprolol and Xarelto, will increase Xarelto dose to full anticoagulation, in view of her current atrial fibrillation, increased metoprolol to 25 b.i.d. (2) Weakness: Code(s): R53.1 - Weakness Status: Acute Assessment and Plan: Could be due to flow, will get echocardiogram to evaluate current status of left ventricular systolic function (3) Influenza A: Code(s): J10.1 - Influenza due to other identified influenza virus with other respiratory manifestations Status: Acute (4) Diastolic congestive heart failure: Code(s): I50.30 - Unspecified diastolic (congestive) heart failure Status: Acute Assessment and Plan: Echocardiogram with normal left ventricular systolic function, seems to be well compensated now (5) Sick sinus syndrome: Code(s): I49.5 - Sick sinus syndrome Status: Acute Assessment and Plan: Status post recent pacemaker, seems to be pacing appropriately, will continue to follow Additional Plan Please do not hesitate to call me for any other inquiry She is okay to be transferred to rehab, need to have a follow-up with me in 1 week Subjective Date/time seen: 08/02/19 08:17 She feels well today, no more arrhythmia, currently she is paced. Had physical therapy with some improvement. No palpitation no dizziness no syncope Exam Narrative: Exam Narrative: Awake alert oriented x3 not in acute distress Neck is supple no obvious JVD, no carotid bruit Chest: Good air entry bilaterally, lungs are clear to auscultation and percussion bilaterally Cardiovascular: Regular rate and rhythm, 2/6 systolic murmur noted left sternal border Abdomen: Soft nontender bowel sounds positive Extremities: Significant skin discoloration with edema bilaterally Objective Data Vital Signs Vital Signs: Vital Signs - 24 hr 08/01/19 09:59 08/01/19 12:00 08/01/19 14:00 Temperature 36.5 C 36.1 C L Pulse Rate 59 L 59 L 63 Respiratory Rate 14 16 Blood Pressure 109/51 L 116/69 Pulse Oximetry 100 97 08/01/19 16:00 08/01/19 18:00 08/01/19 20:00 Temperature 36.1 C L 37.4 C Pulse Rate 60 61 62 Respiratory Rate 14 22 H Blood Pressure 124/78 117/56 L Pulse Oximetry 100 98 08/01/19 20:31 08/02/19 00:00 08/02/19 04:00 Temperature 36.4 C 36.3 C L Pulse Rate 60 61 60 Respiratory Rate 20 20 Blood Pressure 110/76 129/65 Pulse Oximetry 100 96 08/02/19 08:00 Temperature 36.3 C L Pulse Rate 60 Respiratory Rate 16 Blood Pressure 130/62 Pulse Oximetry 100 Intake/Output Intake/Output: Intake & Output 07/30/19 07/31/19 08/01/19 08/02/19 23:59 23:59 23:59 23:59 Intake Total 250 1560 1856.6667 300 Output Total 1000 1800 1400 2900 Balance -750 -747 939.9246 -2600 Meds/Results Medications: Active Medications Generic Name Dose Route Start Last Admin Trade Name Freq PRN Reason Stop Dose Admin Acetaminophen 650 mg 07/30/19 09:14 08/01/19 12:30 Tylenol Tablet PO 650 mg Q6H PRN Administration Mild Pain (1-3) or Fever Dextrose 12.5 gm 07/29/19 21:37 Dextrose 50% Syringe IV PUSH PRN PRN Hypoglycemia Protocol Docusate Sodium 100 mg 07/30/19 09:00 08/01/19 17:40 Colace Capsule PO 100 mg BID RUBEN Administration Ergocalciferol 50,000 unit 08/08/19 09:00 Drisdol PO Mo@0900 RUBEN Gabapentin 300 mg 07/30/19 09:00 08/01/19 17:40 Neurontin PO 300 mg TID RUBEN Administration Glucagon 1 mg 07/29/19 21:37 Glucagon For Inj IM PRN PRN Hypoglycemia Protocol Glucose 15 gm 07/29/19 21:37 Glutose 15 PO PRN PRN Hypoglycemia Protocol Dextrose 1,000 mls @ 100 mls/hr 07/29/19 21:37 Dextrose 5% 1,000 Ml IVPB PRN PRN Hypoglycemia Protocol Insulin Aspa
[2019-08-02] MEDS: METOPROLOL SUCCINATE EXT REL 25 MG TABCR PO (09:31)
[2019-08-02] MEDS: GABAPENTIN 300 MG CAPSULE PO ×3 (09:31→16:09)
[2019-08-02] MEDS: PANTOPRAZOLE SOD SESQUIHYDRATE 20 MG TAB PO (09:33)
[2019-08-02] MEDS: LORATADINE 10 MG TABLET PO (09:33)
[2019-08-02] MEDS: DOCUSATE SODIUM 100 MG CAPSULE PO ×2 (09:33→16:09)
[2019-08-02] MEDS: THERAPEUTIC MULTIVITAMINS/MINERALS TAB (*BKC) 1 TABLET PO (09:33)
[2019-08-02] MEDS: predniSONE 5 MG TABLET PO (09:34)
[2019-08-02] MEDS: MUPIROCIN 2% OINT 22 GM TUBE 1 APPLIC EACH NARE (09:35)
[2019-08-02] MEDS: TOLNAFTATE 1% POWDER 45 GM BTL 1 APPLIC TOPICAL (09:36)
[2019-08-02] MEDS: PREGABALIN 50 MG CAPSULE PO (09:38)
[2019-08-02 12:07] LABS: Glucose Point of Care 162 (65-105)
[2019-08-02 13:05] LABS: Glucose Point of Care 170 (65-105)
[2019-08-02] MEDS: ACETAMINOPHEN 325 MG TABLET 650 MG PO (15:06)
--- NOTE | 2019-08-02 15:46 | PC.NURSE ---
On 08/02/19, the student, Amari Wood, provided care and completed [employer] documentation on this patient. I have reviewed the student's documentation and agree with the findings.
[2019-08-02] MEDS: RIVAROXABAN 20 MG TABLET PO (16:09)
[2019-08-02 17:04] LABS: Glucose Point of Care 257 (65-105)
[2019-08-02] MEDS: INSULIN ASPART (*BKC) 100 UNITS/ML SUB-Q (17:24)
[2019-08-02 17:32] LABS: Glucose Point of Care 222 (65-105)
--- NOTE | 2019-08-02 18:34 | PC.NURSE ---
On 08/02/19, the student, the messi Valladares RN, provided care and completed [facility] documentation on this patient. I have reviewed the student's documentation and agree with the findings.
--- NOTE | 2019-08-02 19:21 | PM.DS ---
DS: Diagnosis Admitting Diagnosis Admitting Diagnosis: Paroxysmal atrial fibrillation Discharge Diagnosis (1) Influenza A: Code(s): J10.1 - Influenza due to other identified influenza virus with other respiratory manifestations Status: Acute Assessment and Plan: Date of Service 08/02/19 Ms. Campa is a 69yo F with history of paroxysmal atrial fibrillation, type 2 diabetes mellitus, and chronic diastolic CHF who presented from home for evaluation of weakness and generalized pain. It was noted that she just recently discharged from SNF about 5 to 7 days prior to this admission where she had lived for the last 5 months, per the patient. She reported she got home from SNF, walked up the stairs and made it to either the bed or a chair where she then remained for days because she could not get up on her own and reports her was not able to help her. CK was elevated to 803 on arrival and she was treated for rhabdomyolosis with IV fluids. CK improved to 92 prior to discharge. She was positive for influenza A but her symptoms started outside of the beneficial time window for Tamiflu and she was treated supportively. Chest XR showed no evidence of pneumonia. No evidence of respiratory distress. She was noted to have episodes of A Fib RVR and cardiology, Dr Biggs, was consulted. He increased her metoprolol dose and increased her Xarelto as well. She was instructed to follow up with Dr Biggs in the office in 1 week. MRSA nares positive and she was started on bactroban x 5 days. Her long-acting insulin was held as she did not have much of an appetite here and she was covered with sliding scale insulin. She was discharged to continue her normal insulin regimen as her last few blood sugars here were above 200. She was initially requiring a Alvaro lift but continued to work with PT/OT here and made improvement, walking with a walker by time of discharge. She was felt to be a good candidate for continued therapy and discharged to [facility] where she had recently just stayed. She does require a bit of encouragement and is often quite tearful on exam. She was hemodynamically stable for discharge 08/02/19 to SNF to be seen by the assisted provider within 1 week and instructed to make an appointment with Dr Biggs's office for 1 week. Consultations: Cardiology - Dr Biggs (2) Paroxysmal atrial fibrillation: Code(s): I48.0 - Paroxysmal atrial fibrillation Status: Acute Assessment and Plan: Episodes of RVR noted here and Cardiology consulted. Dr Biggs increased her doses of metoprolol and Xarelto and she had good rate control after that with no further RVR. Continue metoprolol and Xarelto at increased doses. (3) Weakness: Code(s): R53.1 - Weakness Status: Acute Assessment and Plan: Discharge to [facility]. (4) Leukocytosis: Qualifiers: Leukocytosis type: unspecified Qualified Code(s): D72.829 - Elevated white blood cell count, unspecified Code(s): D72.829 - Elevated white blood cell count, unspecified Status: Acute Assessment and Plan: 19,000 on arrival down to 10,300 day of discharge, felt to be associated with Flu or reactive from rhabdo (5) Diastolic congestive heart failure: Code(s): I50.30 - Unspecified diastolic (congestive) heart failure Status: Acute Assessment and Plan: Appeared well-controlled here. Continue home medications (6) Respiratory alkalosis: Code(s): E87.3 - Alkalosis Status: Acute Assessment and Plan: Noted on ABGs. CO2 mildly low likely due to hyperventilating. Appears chronic. (7) DM (diabetes mellitus): Code(s): E11.9 - Type 2 diabetes mellitus without complications Status: Acute Assessment
== END 2019-08-02 19:12 | DRG 194 ==
LOC: ANHED 15:50 → ANHIMU 18:22 → ANH2MED 07-30 14:01
PROVIDERS: Internal Medicine; Physician Assistant; Admitting Provider Internal Medicine; Emergency Provider Emergency Medicine; Visit Provider Internal Medicine
DX: J10.1 Influenza due to other identified influenza virus with other respiratory manifestations (principal); I50.32 Chronic diastolic (congestive) heart failure; E87.3 Alkalosis; M62.82 Rhabdomyolysis; I48.0 Paroxysmal atrial fibrillation; D72.829 Elevated white blood cell count, unspecified; E83.39 Other disorders of phosphorus metabolism; L89.151 Pressure ulcer of sacral region, stage 1; E11.42 Type 2 diabetes mellitus with diabetic polyneuropathy; J44.9 Chronic obstructive pulmonary disease, unspecified; M19.90 Unspecified osteoarthritis, unspecified site; F41.9 Anxiety disorder, unspecified; E11.51 Type 2 diabetes mellitus with diabetic peripheral angiopathy without gangrene; Z28.21 Immunization not carried out because of patient refusal; Z86.718 Personal history of other venous thrombosis and embolism; Z90.710 Acquired absence of both cervix and uterus; Z95.0 Presence of cardiac pacemaker; Z79.01 Long term (current) use of anticoagulants; Z89.421 Acquired absence of other right toe(s)
CPT/HCPCS: 36415; 36600; 51701; 71045; 80048; 80053; 81001; 82375; 82550; 82805; 83050; 83735; 84100; 84443; 84484; 85025; 85027; 87081; 87804; 93005; 97110; 97162; 97165; 97530; 99285; A9270; C8929; G0378; J1815; J7050; J7512; Q9957

== ENCOUNTER 2020-03-20 14:43 | Observation (INO) | payer MEDICARE, MEDICAID, SELFPAY ==
[2020-03-20] VITALS (7 sets, daily range): BP systolic 119–137; BP diastolic 63–105; PULSE 60–70; RESP 16–23; TEMP 36.6–37.1; O2SAT 96–100; BMI 46.3
--- NOTE | ~2020-03-20 | XR_ITS ---
EXAMINATION: XR chest 1V DATE: 03/20/2020 15:44 INDICATION: Generalized weakness. TECHNIQUE: A single frontal view of the chest was obtained. COMPARISON: Chest single view 07/29/2019, CT abdomen and pelvis 05/2017 FINDINGS: There is a 1 cm nodule at the junction of right mid and upper lung zones. No pleural effusi on or pneumothorax. The heart size is normal. There is a left chest wall pacer with leads in the righ t atrium and right ventricle. IMPRESSION: 1. Right lung nodule. Noncontrast chest CT is recommended to exclude malignancy. I discussed this res ult with Dr. Alejandro. Reviewed, dictated and finalized at location A. IMPRESSION: 1. Right lung nodule. Noncontrast chest CT is recommended to exclude malignancy . I discussed this result with Dr. Alejandro.
--- NOTE | ~2020-03-20 | CT_ITS ---
EXAMINATION: CT chest wo con DATE: 03/20/2020 16:15 INDICATION: Lung nodule; 1 cm right lung nodule suggested at junction of right mid and upper lung zon es on 03/20/2020 portable AP chest TECHNIQUE: Computed tomography (CT) of the chest was performed without intravenous contrast. Automate d exposure control and iterative reconstruction technique were employed. Exam dose: 867.14 mGy-cm to kim exam DLP. COMPARISON: 03/20/2020 portable AP chest FINDINGS: There is mild scarring in the medial right apical area in association with calcified granul radha. Calcified right paratracheal lymph nodes are noted. There is an approximately 6 mm nodular density in the right upper lobe (series 4 image 41) with densi ty measurement of up to 154 Hounsfield units, likely calcified pulmonary granuloma, with some associa ervin linear discoid density, likely scarring. This appears to account for the opacity noted on the seven st radiograph at the junction of the mid and upper lung silva. There is some patchy atelectasis/consolidation at both dependent lower lobes and the lung bases. Cardiomegaly. Left-sided pacemaker device with leads in right atrium and right ventricle. Normal size and homogeneous density of the thyroid gland. No thoracic aortic aneurysm. No hilar or mediastinal mass lesion or lymphadenopathy. Trace pericardial fluid. No pleural effusion. Normal morphology of the adrenal glands. Small sliding hiatal hernia. There is levoscoliosis and degenerative change of the thoracic and lumbar spine. No suspicious osteol ytic or osteoblastic lesions are noted. IMPRESSION: Old pulmonary granulomatous disease Bibasilar atelectasis Cardiomegaly, trace pericardial fluid Small sliding hiatal hernia Reviewed, dictated and finalized at Location A. Reviewed, dictated and finalized at location B.
--- NOTE | ~2020-03-20 | US_ITS ---
EXAMINATION: US venous doppler [facility] DATE: 03/22/2020 09:59 INDICATION: Lower limb edema. TECHNIQUE: Grayscale ultrasound images without and with compression and Doppler ultrasound images of the bilateral lower extremity veins were obtained. COMPARISON: Ultrasound 05/24/2017 FINDINGS: The visualized portions of right common femoral vein, profunda (deep) femoral vein, femoral vein, pop liteal vein, peroneal veins, posterior tibial veins, and greater saphenous vein outflow are patent. The visualized portions of left common femoral vein, profunda femoral vein, femoral vein, popliteal v ein, peroneal veins, posterior tibial veins, and greater saphenous vein outflow are patent. IMPRESSION: 1. No deep venous thrombosis. Reviewed, dictated and finalized at location A.
--- NOTE | 2020-03-20 15:08 | ECG_ITS ---
Measurements Intervals [place] Rate: 63 P: 4 OR: 146 QRS: -35 QRSD: 93 T: -18 QT: 366 QTc: 377 Interpretive Statements SINUS RHYTHM LOW QRS VOLTAGE IN PRECORDIAL LEADS BORDERLINE R WAVE PROGRESSION, ANTERIOR LEADS BASELINE ARTIFACT- I, II, III, AVR, AVL, AVF, V1, V4-V6 BORDERLINE ECG Electronically Signed On 03-20-2020 15:26:57 CDT by Fox Fontaine D.O.
--- NOTE | 2020-03-20 15:23 | ED.GENADULT ---
HPI - General Adult General Chief complaint: Unspecified Stated complaint: PAIN ALL OVER Time Seen by Provider: 03/20/20 15:06 History of Present Illness HPI narrative: 69 yo female with h/o DM, a-fib, htn, morbid obesity brought in by EMS from home for pain and weakness. She was reportedly recently discharged from rehab. After getting home she has stopped taking her medications. She reports that she has not been able to get up since that time. She reports that she has pain everywhere. Related Data Home Medications Medication Instructions Recorded Confirmed Adult One Daily Multivitamin 0.4 mg PO DAILY 07/29/19 07/29/19 Lantus Solostar U-100 Insulin 24 unit SUBCUT DAILY 07/29/19 07/29/19 docusate sodium [Colace] 100 mg PO BID 07/29/19 07/29/19 ergocalciferol (vitamin D2) 50,000 unit PO WEEKLY 07/29/19 07/29/19 [Vitamin D2] ibuprofen 600 mg PO TID 07/29/19 07/29/19 insulin aspart U-100 [Novolog 1 sliding scale dose SUBCUT 07/29/19 07/29/19 U-100 Insulin aspart] USEASDIRECTD loratadine 10 mg PO DAILY 07/29/19 07/29/19 omeprazole 20 mg PO DAILY 07/29/19 07/29/19 ondansetron 4 mg PO Q6H PRN 07/29/19 07/29/19 polyethylene glycol 3350 [Miralax] 17 g PO DAILY 07/29/19 07/29/19 prednisone 5 mg PO DAILY 07/29/19 07/29/19 Allergies Allergy/AdvReac Type Severity Reaction Status Date / Time codeine Allergy Intermediate Verified 06/17/17 10:31 Review of Systems Review of Systems: All systems reviewed & are unremarkable except as noted in HPI and below Constitutional: Constitutional: Reports chills, Reports fatigue, Denies fever(s) and Reports weakness Cardiovascular: Cardiovascular: Denies chest pain Respiratory: Respiratory: Denies dyspnea Genitourinary: Genitourinary: Denies dysuria Musculoskeletal: Musculoskeletal: Reports back pain Neurologic: Denies focal weakness, Denies numbness and Reports weakness PMFSH Past Medical History Medical History Anxiety Arthritis Asthma COPD (chronic obstructive pulmonary disease) Diastolic CHF With grade 2 diastolic dysfunction noted on echocardiogram March 2017 but most recent echo January 2019 demonstrated normal diastolic function with EF of 60-65% DM (diabetes mellitus) Hemoglobin A1c October 2018 was 13.4 hemoglobin A1c February 2019 was 7.1 DVT (deep venous thrombosis) In 2005 due to prolonged inactivity Essential hypertension Heart murmur History of pneumonia Hx of fracture of foot Internal hemorrhoid Noted on colonoscopy February 2015 Peripheral neuropathy With history complicated by prior diabetic foot wound Peripheral vascular disease Shingles 2013 Sick sinus syndrome With Medtronic pacemaker placement January [address] Biggs Surgical History Surgical History Amputated toe of right foot 2nd toe History of appendectomy History of toe surgery ORIF of left toe 1989 History of tonsillectomy History of ventral hernia repair Complicated ventral hernia repair with mesh placement March 2015 Normal colonoscopy With internal hemorrhoids February 2015 Previous section Family History Family History Brother Diabetes mellitus Coronary artery disease Hypertension Mother Pancreatic cancer Sister Coronary artery disease, Onset Age: 60 Dementia Son Cerebral palsy WPW (Gipkq-Dgwzkmjtr-Xvkan syndrome) Small bowel obstruction of complications of small-bowel obstruction Social History Social History Social History: Code status: Full code per ear Primary care physician: Dr. Jaden Alfredo Smoking status: Never smoker Alcohol intake: never Substance use: never Additional living arrangements comments: She lives with her of 47 years. She ambulates with assistive devices. Ad
[2020-03-20 15:39] LABS: Basophils Percent Auto 0.2 % (0.2-1.2); Eosinophils Absolute Auto 0.1 K/mm3 (0-0.3); Eosinophils Percent Auto 0.8 % (0-4.4); Hematocrit 42.1 % (37.0-47.0); Hemoglobin 14.2 g/dL (12.0-15.0); Immature Granulocyte Absolute 0.08 K/mm3 (0.00-0.031); Immature Granulocyte Percent A 0.5 % (0-0.5); Lymphocytes Absolute Auto 2.24 K/mm3 (0.9-3.2); Lymphocytes Percent Auto 13.3 % (18.3-44.2); Mean Corpuscular HGB Conc 33.7 g/dl (32-36); Mean Corpuscular Hemoglobin 30.7 pg (26-34); Mean Corpuscular Volume 90.9 fl (80-100); Mean Platelet Volume 10.4 fl (7.4-10.4); Monocytes Percent Auto 5.6 % (2.6-8.5); Neutrophils Absolute Auto 13.4 K/mm3 (1.3-6.7); Neutrophils Percent Auto 79.6 % (45.5-73.1); Platelet Count Result 224 k/mm3 (150-375); Red Blood Count 4.63 M/mm3 (4.2-5.4); Red Cell Distribution Width 13.7 % (11.5-14.5); White Blood Count 16.8 K/mm3 (4.5-10.0)
[2020-03-20 15:43] LABS: Alanine Aminotransferase 23 U/L (4-35); Albumin Level 3.9 g/dL (3.5-5.1); Alkaline Phosphatase 118 U/L (38-126); Anion Gap 13 mmol/L (8-16); Aspartate Amino Transferase 69 U/L (14-36); Bilirubin,Total 1.1 mg/dL (0.2-1.3); Blood Urea Nitrogen 19 mg/dL (7-17); Calcium 9.3 mg/dL (8.4-10.2); Carbon Dioxide 22 mmol/L (22-30); Chloride 106 mmol/L (98-107); Estimated CRCL calculation 61 ml/min; Estimated Glomerular Filt Rate 55; Glucose 136 mg/dL (65-105); Potassium 4.3 mmol/L (3.4-5.0); Sodium 141 mmol/L (137-145)
[2020-03-20 15:51] LABS: Add Urine Microscopic? YES; Appearance Urine Cloudy (Clear); Bacteria Urine Trace /hpf; Bilirubin Urine Negative (Negative); Blood Urine 1+ (Negative); Color Urine Yellow (Yellow); Glucose Urine UA Negative (Negative); Ketones Urine Trace mg/dL (Negative); Leukocyte Esterase Ur 3+ LEU/UL (Negative); Mucus Urine Rare /lpf; Nitrate Urine Negative (Negative); Protein Urine Negative (Negative); RBC Urine 0-2 /hpf (0-2); Specific Grav Ur 1.013 (1.001-1.035); Squamous Epithelial Cell Urine Occasional /hpf (Few); Urobilinogen Urine Negative mg/dL (<2.0); WBC Urine 51-75 /hpf
--- NOTE | 2020-03-20 16:04 | PC.NURSE ---
PT IN RADIOLOGY AT THIS TIME.
--- NOTE | 2020-03-20 17:04 | PC.NURSE ---
PT DIFFICULT STICK, STUCK MULTIPLE TIMES BY RN AND TECHS FOR SECOND SET OF CULTURE PRIOR TO STARTING ROCEPHIN. COORDINATE MEASURING EQUIPMENT OPERATOR HAS CONTACTED FÉLIX IN LAB TO COME DRAW.
[2020-03-20 17:45] LABS: Lactic Acid Reflex 1.7 mmol/L (0.7-2.1)
--- NOTE | 2020-03-20 18:30 | PC.NURSE ---
This patient, Yanira Campa, was admitted to Medical Room 343-01. Patient/family oriented to hospital policies and general routines including ID bracelet, bed and alarms, visiting hours, pain management, procedures, bathroom and other care routines, personal items, smoking policy, room service/diet, and visiting hours. Valuables list has been completed. Information on how to activate the Rapid Response Team has been discussed. Patient/Family are encouraged to report perceived risks to care and to ask questions if they do not understand what they are told or what they should do.
[2020-03-20] MEDS: LACTATED RINGERS 1,000 ML 125 ML IV CONT (20:15)
--- NOTE | 2020-03-20 23:20 | PM.IMHP ---
H&P: HPI History of Present Illness Date/Time: 03/20/20 23:20 Chief complaint: uti,generalized weakness Narrative: Yanira Campa is a 69 year old female Who stated that she recently got out of [facility] approximately 2 days ago. The patient stated she has not taken any of her medications since she got out [facility]. She has been too weak. She states that her does help out at home but she just too weak to be able to do anything for herself. She has a history of diabetes, hypertension and AFib. She is unable to get out of bed since she has been back from rehab. She has lower extremity redness and dressings to her lower extremities. White count 16.8 urine was positive for UTI patient was started on Rocephin. Random glucose is 136. Patient was admitted as observation status. Date of service 03/20/2020 Review of Systems Review of Systems: Narrative: the patient was falling asleep during the interview and then she was moaning as well. All systems reviewed & are unremarkable except as noted in HPI and below Constitutional: Constitutional: Reports as per HPI and Reports no additional constitutional complaints Eyes: Eyes: Reports as per HPI and Reports no additional eye complaints ENT: Reports system reviewed and no additional complaints, except as documented and Reports Normal hearing present Cardiovascular: Cardiovascular: Reports no additional cardiovascular complaints Respiratory: Respiratory: Reports no additional respiratory complaints and Reports no additional respiratory complaints Gastrointestinal: Gastrointestinal: Reports as per HPI and Reports no additional gastrointestinal complaints Musculoskeletal: Musculoskeletal: Reports no additional musculoskeletal complaints Integumentary/Breasts: Skin/Breast: Reports system reviewed and no additional complaints, except as docu and Reports as per HPI Neurologic: Reports system reviewed and no additional complaints, except as documented, Reports as per HPI and Reports Normal hearing present Psychiatric: Psychiatric: Reports no additional psychiatric complaints and Reports as per HPI Endocrine: Endocrine: Reports no additional endocrine complaints Hematologic/Lymphatic: Hematologic/Lymphatic: Reports no additional hematologic/lymphatic complaints Allergic/Immunologic: Allergic/Immunologic: Reports no additional allergic/immunologic complaints [facility] Past Medical History Medical History (Updated 03/20/20 @ 23:41 by Lisette Garcia NP) Anxiety Arthritis Asthma COPD (chronic obstructive pulmonary disease) Diastolic CHF With grade 2 diastolic dysfunction noted on echocardiogram March 2017 but most recent echo January 2019 demonstrated normal diastolic function with EF of 60-65% Diastolic congestive heart failure DM (diabetes mellitus) Hemoglobin A1c October 2018 was 13.4 hemoglobin A1c February 2019 was 7.1 DVT (deep venous thrombosis) In 2005 due to prolonged inactivity Elevated troponin Essential hypertension Heart murmur History of pneumonia Hx of fracture of foot Hypophosphatemia Influenza A Internal hemorrhoid Noted on colonoscopy February 2015 Paroxysmal atrial fibrillation Peripheral neuropathy With history complicated by prior diabetic foot wound Peripheral vascular disease Rhabdomyolysis Shingles 2013 Sick sinus syndrome With Medtronic pacemaker placement January [address] Biggs Surgical History Surgical History Amputated toe of right foot 2nd toe History of appendectomy History of toe surgery ORIF of left toe 1989 History of tonsillectomy History of ventral hernia repair Complicated ventral hernia repair with mesh placement March 2015 Normal colonoscopy With internal hemorrhoids February 2015 Previous section Family History Family History Brother Diabetes mellitus Coronary artery disease
[2020-03-20 23:43] LABS: Glucose Point of Care 135 (65-105)
[2020-03-21] VITALS (12 sets, daily range): BP systolic 106–129; BP diastolic 57–72; PULSE 59–64; RESP 14–20; TEMP 36.1–36.9; O2SAT 98–100
--- NOTE | 2020-03-21 | ECHO_ITS ---
Patient Info Name: Yanira Campa Age: 69 years : 1950 Gender: Female Ht: 66 in Wt: 287 lbs BSA: 2.53 m2 HR: 70 bpm BP: 106 / 57 mmHg Heart Rhythm: Sinus Rhythm Technical Quality: Good Exam Date: 03/21/2020 11:31 AM Exam Location: [facility] Patient Status: Inpatient Admit Date: 03/20/2020 Staff Ordering Physician: Lisette Garcia NP Law Examiner: Albert Barraza RDCS, RT Attending Provider: Mabel Lawrence PA-C Referring Physician: Radha BELTRAN; Exam Type: CA echo dop color flow w con Study Info Indications I50.9 - Heart failure, unspecified Complete two-dimensional, color flow and Doppler transthoracic echocardiogram is performed with contrast to opacify the left ventricle and to improve the deliniation of the left ventricle endocardial borders. Summary 1. Left ventricular systolic function is normal, estimated at 65-70%. 2. There is no increased left ventricular wall thickness. 3. The left ventricular diastolic function is grade I diastolic dysfunction. 4. Right atrial chamber dimension is probably moderately enlarged, although not well visualized. 5. The tricuspid valve is not well visualized. 6. There is a mild to moderate pericardial effusion without tamponade physiology by mitral or tricuspid inflow velocities. Left Ventricle Left ventricular chamber dimension is normal. Left ventricular systolic function is normal, estimated at 65-70%. There is no increased left ventricular wall thickness. The left ventricular diastolic function is grade I diastolic dysfunction. Right Ventricle Right ventricular chamber dimension is normal. Right ventricular systolic function is normal. Linear artifact in right ventricle suggestive of catheter(s), pacemaker lead(s), or ICD lead(s). Left Atria Left atrial chamber dimension is moderately enlarged. Right Atria Linear artifact in the right atrium suggestive of catheter(s), pacemaker lead(s), or ICD lead(s). Right atrial chamber dimension is probably moderately enlarged, although not well visualized. Aortic Valve The aortic valve is not well visualized. There is no aortic valve stenosis. There is no aortic valve regurgitation. Pulmonic Valve The pulmonic valve is not well visualized. Mitral Valve The mitral valve has normal leaflets. There is trace mitral valve regurgitation. The mitral valve annulus is mildly calcified. Tricuspid Valve The tricuspid valve is not well visualized. Pericardium/Pleural The pericardium appears normal. There is a mild to moderate pericardial effusion without tamponade physiology by mitral or tricuspid inflow velocities. Inferior Vena Cava Normal inferior vena cava with <50% collapse upon inspiration consistent with normal right atrial pressure, 5 mmHg. Aorta The aortic root size at the sinus of Valsalva is normal. Left Ventricular Outflow Tract Name Value Normal LVOT 2D LVOT Diameter 1.99 cm LVOT Doppler LVOT Peak Gradient 6 mmHg LVOT Mean Gradient 3 mmHg LVOT VTI 25.54 cm LVOT VTI/AV VTI Rati
[2020-03-21 05:54] LABS: Basophils Percent Auto 0.3 % (0.2-1.2); Eosinophils Absolute Auto 0.3 K/mm3 (0-0.3); Eosinophils Percent Auto 2.4 % (0-4.4); Hemoglobin 11.9 g/dL (12.0-15.0); Immature Granulocyte Absolute 0.02 K/mm3 (0.00-0.031); Immature Granulocyte Percent A 0.2 % (0-0.5); Lymphocytes Percent Auto 17.5 % (18.3-44.2); Mean Corpuscular HGB Conc 33.1 g/dl (32-36); Mean Corpuscular Volume 93.8 fl (80-100); Mean Platelet Volume 10.3 fl (7.4-10.4); Monocytes Absolute Auto 0.8 K/mm3 (0.1-0.6); Monocytes Percent Auto 7.3 % (2.6-8.5); Neutrophils Absolute Auto 8.3 K/mm3 (1.3-6.7); Neutrophils Percent Auto 72.3 % (45.5-73.1); Platelet Count Result 184 k/mm3 (150-375); Red Blood Count 3.84 M/mm3 (4.2-5.4); Red Cell Distribution Width 14.2 % (11.5-14.5); White Blood Count 11.5 K/mm3 (4.5-10.0)
[2020-03-21 06:03] LABS: Hemoglobin A1C 6.1 % (<5.7)
[2020-03-21 06:13] LABS: Alanine Aminotransferase 16 U/L (4-35); Albumin Level 2.9 g/dL (3.5-5.1); Alkaline Phosphatase 72 U/L (38-126); Anion Gap 6 mmol/L (8-16); Aspartate Amino Transferase 47 U/L (14-36); Bilirubin,Total 0.8 mg/dL (0.2-1.3); Blood Urea Nitrogen 15 mg/dL (7-17); Calcium 8.4 mg/dL (8.4-10.2); Carbon Dioxide 24 mmol/L (22-30); Chloride 113 mmol/L (98-107); Estimated CRCL calculation 78 ml/min; Estimated Glomerular Filt Rate > 60; Glucose 109 mg/dL (65-105); Magnesium 1.9 mg/dL (1.6-2.3); Potassium 3.8 mmol/L (3.4-5.0); Sodium 143 mmol/L (137-145)
[2020-03-21 08:48] LABS: Glucose Point of Care 107 (65-105)
[2020-03-21] MEDS: GABAPENTIN 300 MG CAPSULE PO ×3 (09:16→17:27)
[2020-03-21] MEDS: IBUPROFEN 600 MG TABLET PO ×3 (09:17→17:27)
[2020-03-21] MEDS: LORATADINE 10 MG TABLET PO (09:17)
[2020-03-21] MEDS: THERAPEUTIC MULTIVITAMINS/MINERALS TAB (*BKC) 1 TABLET PO (09:17)
[2020-03-21] MEDS: predniSONE 5 MG TABLET PO (09:17)
[2020-03-21] MEDS: METOPROLOL SUCCINATE EXT REL 25 MG TABCR PO ×2 (09:17→20:51)
[2020-03-21] MEDS: DOCUSATE SODIUM 100 MG CAPSULE PO ×2 (09:18→17:26)
[2020-03-21] MEDS: PANTOPRAZOLE SOD SESQUIHYDRATE 20 MG TAB PO (09:18)
[2020-03-21] MEDS: TOLNAFTATE 1% POWDER 45 GM BTL 1 APPLIC TOPICAL ×2 (09:18→20:52)
[2020-03-21] MEDS: polyethylene glycoL 3350 17 GM POWD.PACK PO (09:18)
[2020-03-21] MEDS: FUROSEMIDE 40 MG TABLET PO (09:18)
[2020-03-21] MEDS: INSULIN GLARGINE (*BKC) 100 UNITS/ML 24 UNITS SUB-Q (09:21)
[2020-03-21] MEDS: PERFLUTREN LIPID MICROSPHERES 1.5 ML VIAL DILUTED TO 10 ML TOTAL VOLUME IV PUSH (12:08)
[2020-03-21 12:41] LABS: Glucose Point of Care 133 (65-105)
--- NOTE | 2020-03-21 13:17 | PM.IMPN ---
Progress Note: A&P Assessment and Plan (1) UTI (urinary tract infection): Code(s): N39.0 - Urinary tract infection, site not specified Status: Acute Assessment and Plan: Urinalysis grossly abnormal. Patient is asymptomatic. she is afebrile. She does have leukocytosis that has improved compared to yesterday. Urine cultures and blood cultures are pending. Continue Rocephin, initiated on 03/20. (2) Weakness: Code(s): R53.1 - Weakness Status: Acute Assessment and Plan: she was just discharged from [facility] 2 days ago. Upon return home, she felt very weak. She was having difficulty getting around her home and had not been taking her medicine. PT and OT evaluation is appreciated Care coordination is following for possible return to [facility]. It appears the patient is not able to care for herself at home. (3) Diastolic congestive heart failure: Code(s): I50.30 - Unspecified diastolic (congestive) heart failure Status: Chronic Assessment and Plan: Last echo in July 2019 showed a normal EF 65-70% with grade 1 diastolic dysfunction. Patient has significant lower extremity edema. CXR shows cardiomegaly. Repeat echo has been ordered and is pending continue 40 mg daily Lasix p.o. continue metoprolol (4) COPD (chronic obstructive pulmonary disease): Code(s): J44.9 - Chronic obstructive pulmonary disease, unspecified Status: Acute Assessment and Plan: Does not appear to be in acute exacerbation. She is maintaining adequate oxygen saturations on room air. She is not on any bronchodilators. Albuterol as needed supplemental O2 as needed with goal saturation 90% or above (5) DM (diabetes mellitus): Code(s): E11.9 - Type 2 diabetes mellitus without complications Status: Chronic Assessment and Plan: Complicated by peripheral neuropathy. A1c is 6.1. Blood sugars evaluated today and are well controlled. Continue Accu-Cheks ACHS, SSI, and hypoglycemia protocol. Continue Lantus Gabapentin for neuropathy (6) Paroxysmal atrial fibrillation: Code(s): I48.0 - Paroxysmal atrial fibrillation Status: Chronic Assessment and Plan: Rate is controlled. Continue metoprolol and Xarelto. (7) Chronic venous stasis: Code(s): I87.8 - Other specified disorders of veins Status: Acute Assessment and Plan: Exam findings of chronic lower extremity discoloration appear consistent with venous stasis. She reports no change in months. Compression/elevation. Apply luis wraps to lower extremities Will check venous doppler to ensure no DVT given tenderness Likely will benefit from outpatient vascular referral. Subjective Date/time seen: 03/21/20 13:17 Interval history: Date of service: 03/21/2020 Yanira Campa is a 68 old female with a history of COPD, CHF, type 2 DM, she HTN, atrial fibrillation, and multiple other comorbidities who is seen in follow-up for weakness. She was discharged from [facility] just a few days ago and upon return home, had difficulty getting around and care for herself at home. Today she reports she is feeling well. her biggest complaint at this time is pain in her legs, which she reports is chronic. She has a difficult time describing this pain but it seems to be more of a dull aching in the calves that is worse with movement. this has been ongoing for some time and seems to be a big contributor to her overall weakness. She denies any urinary symptoms. No dysuria, hematuria, urgency, or frequency, suprapubic pain, flank pain, or back pain. She is urinating without difficulty. Her last bowel movement was 2 days ago. She is passing gas and denies any abdominal cramping or bloating. She denies fever, chills, nausea, vomiting, dizziness, lightheadedness, body aches, or fatigue. she has no additional prince
[2020-03-21 16:55] LABS: Glucose Point of Care 147 (65-105)
[2020-03-21] MEDS: RIVAROXABAN 20 MG TABLET PO (17:26)
[2020-03-21 21:13] LABS: Glucose Point of Care 167 (65-105)
[2020-03-22] VITALS (12 sets, daily range): BP systolic 106–143; BP diastolic 58–89; PULSE 60–69; RESP 12–18; TEMP 36.2–36.9; O2SAT 97–98
[2020-03-22 05:34] LABS: Hematocrit 39.5 % (37.0-47.0); Hemoglobin 12.8 g/dL (12.0-15.0); Mean Corpuscular HGB Conc 32.4 g/dl (32-36); Mean Corpuscular Hemoglobin 31.1 pg (26-34); Mean Corpuscular Volume 95.9 fl (80-100); Mean Platelet Volume 10.3 fl (7.4-10.4); Platelet Count Result 172 k/mm3 (150-375); Red Blood Count 4.12 M/mm3 (4.2-5.4); Red Cell Distribution Width 14.1 % (11.5-14.5); White Blood Count 8.4 K/mm3 (4.5-10.0)
[2020-03-22 07:03] LABS: Anion Gap 8 mmol/L (8-16); Blood Urea Nitrogen 18 mg/dL (7-17); Calcium 8.5 mg/dL (8.4-10.2); Carbon Dioxide 20 mmol/L (22-30); Chloride 117 mmol/L (98-107); Estimated CRCL calculation 70 ml/min; Estimated Glomerular Filt Rate > 60; Glucose 98 mg/dL (65-105); Potassium 3.8 mmol/L (3.4-5.0); Sodium 145 mmol/L (137-145)
[2020-03-22 08:12] LABS: Glucose Point of Care 52 (65-105)
[2020-03-22] MEDS: IBUPROFEN 600 MG TABLET PO ×3 (08:20→16:56)
[2020-03-22] MEDS: METOPROLOL SUCCINATE EXT REL 25 MG TABCR PO ×2 (08:20→21:26)
[2020-03-22] MEDS: polyethylene glycoL 3350 17 GM POWD.PACK PO (08:20)
[2020-03-22] MEDS: THERAPEUTIC MULTIVITAMINS/MINERALS TAB (*BKC) 1 TABLET PO (08:20)
[2020-03-22] MEDS: PANTOPRAZOLE SOD SESQUIHYDRATE 20 MG TAB PO (08:20)
[2020-03-22] MEDS: FUROSEMIDE 40 MG TABLET PO (08:21)
[2020-03-22] MEDS: GABAPENTIN 300 MG CAPSULE PO ×3 (08:21→16:57)
[2020-03-22] MEDS: predniSONE 5 MG TABLET PO (08:21)
[2020-03-22] MEDS: LORATADINE 10 MG TABLET PO (08:21)
[2020-03-22] MEDS: DOCUSATE SODIUM 100 MG CAPSULE PO ×2 (08:22→16:57)
[2020-03-22] MEDS: TOLNAFTATE 1% POWDER 45 GM BTL 1 APPLIC TOPICAL ×2 (08:22→21:25)
[2020-03-22 08:54] LABS: Glucose Point of Care 86 (65-105)
--- NOTE | 2020-03-22 09:40 | PC.NURSE ---
To radiology via stretcher.
--- NOTE | 2020-03-22 10:20 | PC.NURSE ---
Returned from radiology via stretcher.
--- NOTE | 2020-03-22 12:01 | PM.IMPN ---
Progress Note: A&P Assessment and Plan (1) UTI (urinary tract infection): Code(s): N39.0 - Urinary tract infection, site not specified Status: Acute Assessment and Plan: Urinalysis grossly abnormal. Patient is asymptomatic. She is afebrile. Leukocytosis resolved. urine culture with >100,000 CFU E coli With sensitivity to ceftriaxone. Continue Rocephin, initiated on 03/20. Preliminary blood cultures with NGTD, await final cultures (2) Weakness: Code(s): R53.1 - Weakness Status: Acute Assessment and Plan: She was just discharged from [facility] 2 days prior to presentation. Upon return home, she felt very weak. She was having difficulty getting around her home and had not been taking her medicine. PT and OT evaluation is appreciated Care coordination is following. she will be going to [facility] upon discharge. Negative COVID test required prior which is pending. Hopeful discharge tomorrow upon negative result. (3) Diastolic congestive heart failure: Code(s): I50.30 - Unspecified diastolic (congestive) heart failure Status: Chronic Assessment and Plan: Last echo in July 2019 showed a normal EF 65-70% with grade 1 diastolic dysfunction. CXR shows cardiomegaly. Repeat echo performed 03/21 relatively unchanged. Does not appear to be in acute exacerbation this. She does have significant lower extremity edema which is chronic and unchanged for over 2 months. continue 40 mg daily Lasix p.o. continue metoprolol check BNP (4) COPD (chronic obstructive pulmonary disease): Code(s): J44.9 - Chronic obstructive pulmonary disease, unspecified Status: Acute Assessment and Plan: Does not appear to be in acute exacerbation. She is maintaining adequate oxygen saturation on room air. She is not on any bronchodilators. Albuterol as needed supplemental O2 as needed with goal saturation 90% or above (5) DM (diabetes mellitus): Code(s): E11.9 - Type 2 diabetes mellitus without complications Status: Chronic Assessment and Plan: Complicated by peripheral neuropathy. A1c is 6.1. Blood sugars evaluated today and are well controlled. she had an episode of hypoglycemia this morning at 52 which improved with juice. She reports that she frequently has episodes of hypoglycemia in the morning. She is asymptomatic with episodes. Continue Accu-Cheks ACHS, SSI, and hypoglycemia protocol. Lantus held this morning in light of hypoglycemia. Resume Lantus tomorrow morning at reduced dose of 15 units daily. Gabapentin for neuropathy (6) Paroxysmal atrial fibrillation: Code(s): I48.0 - Paroxysmal atrial fibrillation Status: Chronic Assessment and Plan: Rate is controlled. Continue metoprolol and Xarelto. (7) Chronic venous stasis: Code(s): I87.8 - Other specified disorders of veins Status: Acute Assessment and Plan: Exam findings of chronic lower extremity discoloration appear consistent with venous stasis. She reports no change in months. Venous doppler negative for DVT. Compression/elevation. Apply luis wraps to lower extremities Likely will benefit from outpatient vascular referral. Subjective Date/time seen: 03/22/20 12:01 Interval history: Date of service: 03/21/2020 Yanira Campa is a 68 old female with a history of COPD, CHF, type 2 DM, she HTN, atrial fibrillation, and multiple other comorbidities who is seen in follow-up for weakness. She was discharged from [facility] just a few days ago and upon return home had difficulty getting around and caring for herself at home.Today she reports she is feeling about the same. She complains of pain in her bilateral legs that worsens with movement. She also complains of irritation in her abdominal folds that is bothersome to her. she denies dysuria, urgency, hematuria, frequency, or any oth
[2020-03-22 12:14] LABS: Glucose Point of Care 110 (65-105)
[2020-03-22] MEDS: RIVAROXABAN 20 MG TABLET PO (16:57)
[2020-03-22 17:01] LABS: Glucose Point of Care 171 (65-105)
[2020-03-22 21:43] LABS: Glucose Point of Care 227 (65-105)
[2020-03-23] VITALS: PULSE 61
[2020-03-23 04:00] VITALS: PULSE 60
[2020-03-23 05:34] VITALS: BP 153/77; PULSE 62; RESP 14; TEMP 36.1; O2SAT 95
[2020-03-23 06:41] LABS: Hematocrit 39.9 % (37.0-47.0); Hemoglobin 13.2 g/dL (12.0-15.0); Mean Corpuscular HGB Conc 33.1 g/dl (32-36); Mean Corpuscular Hemoglobin 31.1 pg (26-34); Mean Corpuscular Volume 94.1 fl (80-100); Mean Platelet Volume 10.2 fl (7.4-10.4); Platelet Count Result 206 k/mm3 (150-375); Red Blood Count 4.24 M/mm3 (4.2-5.4); Red Cell Distribution Width 13.7 % (11.5-14.5); White Blood Count 8.6 K/mm3 (4.5-10.0)
[2020-03-23 06:53] LABS: Anion Gap 7 mmol/L (8-16); Blood Urea Nitrogen 16 mg/dL (7-17); Calcium 8.4 mg/dL (8.4-10.2); Carbon Dioxide 29 mmol/L (22-30); Chloride 110 mmol/L (98-107); Estimated CRCL calculation 78 ml/min; Estimated Glomerular Filt Rate > 60; Glucose 135 mg/dL (65-105); Potassium 3.3 mmol/L (3.4-5.0); Sodium 146 mmol/L (137-145)
[2020-03-23 06:58] LABS: NT Pro B Type Natriuretic Pept 803 PG/ML (5-100)
[2020-03-23 07:59] LABS: Glucose Point of Care 120 (65-105)
[2020-03-23 08:00] VITALS: PULSE 61
[2020-03-23 08:35] VITALS: PULSE 60
[2020-03-23] MEDS: METOPROLOL SUCCINATE EXT REL 25 MG TABCR PO (08:35)
[2020-03-23] MEDS: TOLNAFTATE 1% POWDER 45 GM BTL 1 APPLIC TOPICAL (08:36)
[2020-03-23] MEDS: IBUPROFEN 600 MG TABLET PO ×2 (08:37→12:39)
[2020-03-23] MEDS: FUROSEMIDE 40 MG TABLET PO (08:37)
[2020-03-23] MEDS: THERAPEUTIC MULTIVITAMINS/MINERALS TAB (*BKC) 1 TABLET PO (08:37)
[2020-03-23] MEDS: predniSONE 5 MG TABLET PO (08:37)
[2020-03-23] MEDS: POTASSIUM CHLORIDE 20 MEQ TABLET 40 MEQ PO (08:37)
[2020-03-23] MEDS: GABAPENTIN 300 MG CAPSULE PO ×2 (08:37→12:39)
[2020-03-23] MEDS: PANTOPRAZOLE SOD SESQUIHYDRATE 20 MG TAB PO (08:37)
[2020-03-23] MEDS: LORATADINE 10 MG TABLET PO (08:38)
[2020-03-23] MEDS: DOCUSATE SODIUM 100 MG CAPSULE PO (08:38)
[2020-03-23] MEDS: INSULIN GLARGINE (*BKC) 100 UNITS/ML 15 UNITS SUB-Q (08:41)
[2020-03-23 11:39] LABS: Glucose Point of Care 133 (65-105)
[2020-03-23 12:00] VITALS: PULSE 62
[2020-03-23 12:19] LABS: SARS-CoV-2 RNA PCR Negative
--- NOTE | 2020-03-23 13:06 | PM.DS ---
DS: Admitting Diagnosis Admitting Diagnosis Admitting Diagnosis: uti,generalized weakness DS: Discharge Diagnosis Discharge Diagnosis (1) UTI (urinary tract infection): Code(s): N39.0 - Urinary tract infection, site not specified Status: Acute Assessment and Plan: Urinalysis grossly abnormal. Patient is asymptomatic. She is afebrile. Leukocytosis resolved. urine culture with >100,000 CFU E coli With sensitivity to ceftriaxone. Continue Rocephin, initiated on 03/20 (day 4). Will do 3 additional days of cefdinir to complete 7 days total Preliminary blood cultures with NGTD, await final cultures D/c [facility] (2) Weakness: Code(s): R53.1 - Weakness Status: Acute Assessment and Plan: She was just discharged from [facility] 2 days prior to presentation. Upon return home, she felt very weak. She was having difficulty getting around her home and had not been taking her medicine. PT and OT evaluation is appreciated Care coordination is following. she will be going to [facility] upon discharge. Negative COVID test today D/c today (3) Diastolic congestive heart failure: Code(s): I50.30 - Unspecified diastolic (congestive) heart failure Status: Chronic Assessment and Plan: Last echo in July 2019 showed a normal EF 65-70% with grade 1 diastolic dysfunction. CXR shows cardiomegaly. Repeat echo performed 03/21 relatively unchanged. Does not appear to be in acute exacerbation. She does have significant lower extremity edema which is chronic and unchanged for over 2 months. continue 40 mg daily Lasix p.o. continue metoprolol Discussed f/u with her sliver handler, Dr. Biggs, as an outpatient (4) COPD (chronic obstructive pulmonary disease): Code(s): J44.9 - Chronic obstructive pulmonary disease, unspecified Status: Acute Assessment and Plan: Does not appear to be in acute exacerbation. She is maintaining adequate oxygen saturation on room air. She is not on any bronchodilators. Albuterol as needed supplemental O2 as needed with goal saturation 90% or above (5) DM (diabetes mellitus): Code(s): E11.9 - Type 2 diabetes mellitus without complications Status: Chronic Assessment and Plan: Complicated by peripheral neuropathy. A1c is 6.1. Blood sugars evaluated today and are well controlled. she had an episode of hypoglycemia during stay which improved with juice; daily lantus subsequently lowered to 15 u daily. She reports that she frequently has episodes of hypoglycemia in the morning, but never this low. She is asymptomatic with episodes. Continue Accu-Cheks ACHS, SSI, and hypoglycemia protocol. Will do 15 u Lantus at discharge with instructions to increase dose as appropriate Gabapentin for neuropathy (6) Paroxysmal atrial fibrillation: Code(s): I48.0 - Paroxysmal atrial fibrillation Status: Chronic Assessment and Plan: Rate is controlled. Continue metoprolol and Xarelto. (7) Chronic venous stasis: Code(s): I87.8 - Other specified disorders of veins Status: Acute Assessment and Plan: Exam findings of chronic lower extremity discoloration appear consistent with venous stasis. She reports no change in months. Venous doppler negative for DVT. Compression/elevation. Apply luis wraps to lower extremities Likely will benefit from outpatient vascular referral. DS: Summary Hospital Course Reason for hospitalization: Weakness, UTI Hospital Course: Patient is a 69 yo F with history of COPD, CHF, type 2 DM, she HTN, atrial fibrillation, and multiple other comorb
--- NOTE | 2020-03-23 20:52 | PC.NURSE ---
@2044 Spoke with TEDDY Walton at [facility] regarding insulin sliding scale verification. Low dose correction scale parameters were reviewed with nurse.
== END 2020-03-23 16:30 ==
LOC: ANHED 17:39 → ANH3MED 17:58
PROVIDERS: Internal Medicine; Nurse Practitioner; Physician Assistant; Admitting Provider Family Medicine; Emergency Provider Emergency Medicine; Visit Provider Physician Assistant
DX: N39.0 Urinary tract infection, site not specified (principal); R53.1 Weakness; J44.9 Chronic obstructive pulmonary disease, unspecified; I11.0 Hypertensive heart disease with heart failure; I50.30 Unspecified diastolic (congestive) heart failure; E11.42 Type 2 diabetes mellitus with diabetic polyneuropathy; R91.1 Solitary pulmonary nodule; K44.9 Diaphragmatic hernia without obstruction or gangrene; I31.3 Pericardial effusion (noninflammatory); I48.0 Paroxysmal atrial fibrillation; I87.8 Other specified disorders of veins; F41.9 Anxiety disorder, unspecified; E66.01 Morbid (severe) obesity due to excess calories; Z68.42 Body mass index [BMI] 45.0-49.9, adult; Z95.0 Presence of cardiac pacemaker; Z86.718 Personal history of other venous thrombosis and embolism; Z20.828 Contact with and (suspected) exposure to other viral communicable diseases; Z79.4 Long term (current) use of insulin; Z79.01 Long term (current) use of anticoagulants
CPT/HCPCS: 36415; 51701; 71045; 71250; 80048; 80053; 81001; 82728; 83036; 83605; 83735; 83880; 84443; 85025; 85027; 87040; 87077; 87086; 87088; 87186; 87635; 93005; 93970; 96361; 96365; 96366; 96375; 97110; 97161; 97166; 97530; 97535; 99285; A9270; C8929; C9803; G0378; J0696; J1815; J7120; J7512; Q9957; U0003

== ENCOUNTER 2020-08-22 14:10 | Inpatient (IN) | payer MEDICARE, MEDICAID, SELFPAY ==
[2020-08-22] VITALS (27 sets, daily range): BP systolic 95–129; BP diastolic 64–82; PULSE 91–126; RESP 18–30; TEMP 37.3–37.8; O2SAT 91–99; BMI 46.1
--- NOTE | ~2020-08-22 | XR_ITS ---
EXAMINATION: XR chest 1V portable DATE: 08/24/2020 14:33 INDICATION: Lung infiltrates. TECHNIQUE: A single frontal view of the chest was obtained on 2 radiographs. COMPARISON: Chest single view 08/22/2020, chest CT 03/20/2020 FINDINGS: There are mild airspace opacities in all right lung zones and left lower lung zone. No pleu ral effusion or pneumothorax. Cardiomegaly is noted. There is a left chest wall pacer with leads in t he right atrium and right ventricle. IMPRESSION: 1. Stable mild airspace opacities in all right lung zones and in left lower lung zone, consistent wit h pneumonia versus mild pulmonary edema. 2. Cardiomegaly. Reviewed, dictated and finalized at location A. LE TESTER IMPRESSION: 1. Stable mild airspace opacities in all right lung zones and in left lower rubi g zone, consistent with pneumonia versus mild pulmonary edema. 2. Cardiomegaly.
--- NOTE | ~2020-08-22 | XR_ITS ---
EXAMINATION: XR chest 1V portable EXAM DATE: 08/26/2020 08:54 INDICATION: Infiltrates. Has a positive for COVID after vaccine. TECHNIQUE: Portable AP frontal chest x-ray was obtained. Comparison is made to prior examination from 08/24/2020. FINDINGS: There is a dual lead pacemaker/AICD seen with leads projecting over the expected locations of the right atrial appendage and right ventricle. Low lung volume, could be contributing to cardiac silhouette and pulmonary vascular crowding. Some ill-defined left basilar atelectasis or pneumonia. T here is no pneumothorax suspected. There are no pleural effusions. The cardiomediastinal silhouette i s prominent but magnified on this AP technique. IMPRESSION: Retrocardiac ill-defined atelectasis or pneumonia. Reviewed, dictated and finalized at location A. HOLOGY TECHNICIAN
--- NOTE | ~2020-08-22 | XR_ITS ---
EXAMINATION: XR chest 1V portable EXAM DATE: 08/22/2020 16:30 INDICATION: COVID positive. History CHF. TECHNIQUE: Portable AP frontal chest x-ray was obtained. Comparison is made to prior examination from 03/20/2020. FINDINGS: There is a dual lead pacemaker/AICD seen with leads projecting over the expected locations of the right atrial appendage and right ventricle. The cardiac silhouette is enlarged. There is pulmo nary vascular congestion. Some ill-defined bilateral airspace disease, probably edema or pneumonia. N o pneumothorax or pleural effusion. IMPRESSION: 1. Small amount of ill-defined bilateral edema or pneumonia. 2. Cardiomegaly, pulmonary vascular congestion. Reviewed, dictated and finalized at location A. F LIBRARIAN BRANCH
--- NOTE | 2020-08-22 14:30 | ECG_ITS ---
Measurements Intervals [place] Rate: 116 P: W[place]: 0 QRS: -49 QRSD: 105 T: 1 QT: 377 QTc: 524 Interpretive Statements ATRIAL FIBRILLATION WITH RAPID VENTRICULAR RESPONSE VENTRICULAR PREMATURE COMPLEX INCOMPLETE RIGHT BUNDLE BRANCH BLOCK LEFT ANTERIOR FASCICULAR BLOCK CANNOT RULE OUT SEPTAL INFARCT, AGE INDETERMINATE BORDERLINE T WAVE ABNORMALITY- ANTEROLAT/INF LEADS BASELINE ARTIFACT- I, III, AVR, AVL, AVF, V6 ABNORMAL ECG Electronically Signed On 08-23-2020 7:08:13 POACHER WRINGER OPERATOR by Fox Fontaine D.O.
[2020-08-22 14:54] LABS: Basophils Percent Auto 0.2 % (0.2-1.2); Eosinophils Absolute Auto 0.1 K/mm3 (0-0.3); Eosinophils Percent Auto 0.9 % (0-4.4); Hematocrit 39.9 % (37.0-47.0); Hemoglobin 13.4 g/dL (12.0-15.0); Immature Granulocyte Absolute 0.04 K/mm3 (0.00-0.031); Immature Granulocyte Percent A 0.3 % (0-0.5); Lymphocytes Absolute Auto 2.86 K/mm3 (0.9-3.2); Lymphocytes Percent Auto 21.8 % (18.3-44.2); Mean Corpuscular HGB Conc 33.6 g/dl (32-36); Mean Corpuscular Volume 92.4 fl (80-100); Mean Platelet Volume 9.7 fl (7.4-10.4); Monocytes Absolute Auto 1.3 K/mm3 (0.1-0.6); Monocytes Percent Auto 10.1 % (2.6-8.5); Neutrophils Absolute Auto 8.8 K/mm3 (1.3-6.7); Neutrophils Percent Auto 66.7 % (45.5-73.1); Platelet Count Result 225 k/mm3 (150-375); Red Blood Count 4.32 M/mm3 (4.2-5.4); Red Cell Distribution Width 13.7 % (11.5-14.5); White Blood Count 13.1 K/mm3 (4.5-10.0)
[2020-08-22 15:09] LABS: INR 1.3; Prothrombin Time 16.7 Seconds (11.1-14.7)
[2020-08-22 15:10] LABS: Partial Thromboplastin Time 38.6 SECONDS (22.3-36.8)
--- NOTE | 2020-08-22 15:17 | ED.GENADULT ---
HPI - General Adult General Chief complaint: Altered Mental Status Stated complaint: decreased loc/covid Time Seen by Provider: 08/22/20 14:25 Source: patient Mode of arrival: ambulatory Limitations: no limitations History of Present Illness HPI narrative: Patient is a 70-year-old female who presents from assisted for not feeling well noting that she has developed body aches and fever over the last 24 hours patient had a positive Covid test per EMS and patient test was positive today. Patient had had a prior Covid infection and also has had both of her Covid vaccines. Patient on arrival denying any pain does note mild cough denies any chest pain shortness of breath vomiting diarrhea or other complaints. Patient had Covid + April 24, 2020. Patient's Covid was again positive today. Related Data Home Medications Medication Instructions Recorded Confirmed Adult One Daily Multivitamin 0.4 mg PO DAILY 07/29/19 03/20/20 docusate sodium [Colace] 100 mg PO BID 07/29/19 03/20/20 ergocalciferol (vitamin D2) 50,000 unit PO WEEKLY 07/29/19 03/20/20 [Vitamin D2] ibuprofen 600 mg PO TID PRN 07/29/19 03/20/20 insulin aspart U-100 [Novolog 1 sliding scale dose SUBCUT 07/29/19 03/20/20 U-100 Insulin aspart] USEASDIRECTD loratadine 10 mg PO DAILY 07/29/19 03/20/20 omeprazole 20 mg PO DAILY 07/29/19 03/20/20 polyethylene glycol 3350 [Miralax] 17 g PO DAILY 07/29/19 03/20/20 prednisone 5 mg PO DAILY 07/29/19 03/20/20 furosemide [Lasix] 40 mg PO DAILY 03/20/20 03/20/20 gabapentin 300 mg PO TID 03/20/20 03/20/20 Allergies Allergy/AdvReac Type Severity Reaction Status Date / Time codeine Allergy Intermediate Verified 06/17/17 10:31 Review of Systems Review of Systems: All systems reviewed & are unremarkable except as noted in HPI and below PMFSH Past Medical History Medical History Anxiety Arthritis Asthma COPD (chronic obstructive pulmonary disease) Diastolic CHF With grade 2 diastolic dysfunction noted on echocardiogram March 2017 but most recent echo January 2019 demonstrated normal diastolic function with EF of 60-65% Diastolic congestive heart failure DM (diabetes mellitus) Hemoglobin A1c October 2018 was 13.4 hemoglobin A1c February 2019 was 7.1 DVT (deep venous thrombosis) In 2005 due to prolonged inactivity Elevated troponin Essential hypertension Heart murmur History of pneumonia Hx of fracture of foot Hypophosphatemia Influenza A Internal hemorrhoid Noted on colonoscopy February 2015 Paroxysmal atrial fibrillation Peripheral neuropathy With history complicated by prior diabetic foot wound Peripheral vascular disease Rhabdomyolysis Jo Ann 2013 Sick sinus syndrome With Medtronic pacemaker placement January [address] Biggs Surgical History Surgical History Amputated toe of right foot 2nd toe History of appendectomy History of toe surgery ORIF of left toe 1989 History of tonsillectomy History of ventral hernia repair Complicated ventral hernia repair with mesh placement March 2015 Normal colonoscopy With internal hemorrhoids February 2015 Previous section Family History Family History Brother Diabetes mellitus Coronary artery disease Hypertension Mother Pancreatic cancer Sister Coronary artery disease, Onset Age: 60 Dementia Son Cerebral palsy WPW (Jfhpc-Wymgwixgi-Tupap syndrome) Small bowel obstruction of complications of small-bowel obstruction Social History Social History Social History: The patient is and lives with her . 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 She ambulates with the boot on her leg and budget assistant devices. Patient is a full code. She has never smoked. She had 1 son and he due to sm
[2020-08-22 15:20] LABS: Alanine Aminotransferase 9 U/L (4-35); Albumin Level 3.6 g/dL (3.5-5.1); Alkaline Phosphatase 86 U/L (38-126); Anion Gap 5 mmol/L (8-16); Aspartate Amino Transferase 24 U/L (14-36); Bilirubin,Total 0.8 mg/dL (0.2-1.3); Blood Urea Nitrogen 27 mg/dL (7-17); Calcium 8.9 mg/dL (8.4-10.2); Carbon Dioxide 36 mmol/L (22-30); Chloride 96 mmol/L (98-107); Estimated CRCL calculation 53 ml/min; Estimated Glomerular Filt Rate 44; Glucose 120 mg/dL (65-105); Potassium 2.5 mmol/L (3.4-5.0); Sodium 137 mmol/L (137-145)
[2020-08-22 15:22] LABS: NT Pro B Type Natriuretic Pept 5050 PG/ML (5-100)
[2020-08-22 15:25] LABS: Troponin I < 0.012 ng/mL (0.000-0.034)
[2020-08-22 15:26] LABS: CRP 17.6 mg/dL (<1.0)
[2020-08-22] MEDS: SODIUM CHLORIDE 0.9% IV 500 ML 999 ML IV CONT (15:28)
[2020-08-22 15:35] LABS: Add Urine Microscopic? YES; Appearance Urine Clear (Clear); Bilirubin Urine Negative (Negative); Blood Urine Negative (Negative); Color Urine Yellow (Yellow); Glucose Urine UA Negative (Negative); Ketones Urine Negative (Negative); Leukocyte Esterase Ur Negative LEU/UL (Negative); Nitrate Urine Negative (Negative); Protein Urine Negative (Negative); RBC Urine 0-2 /hpf (0-2); Specific Grav Ur 1.011 (1.001-1.035); Squamous Epithelial Cell Urine Rare /hpf (Few); Urobilinogen Urine Negative mg/dL (<2.0); WBC Urine 0-3 /hpf
[2020-08-22 15:42] LABS: Magnesium 1.4 mg/dL (1.6-2.3)
[2020-08-22 15:42] LABS: Lactic Acid Reflex 1.3 mmol/L (0.7-2.1)
[2020-08-22] MEDS: POTASSIUM CHLORIDE 20 MEQ PACKET (FOR LIQUID) 40 MEQ PO (15:48)
[2020-08-22] MEDS: MAGNESIUM SULF 2 GM/WATER 50ML 2 GM/50 ML BAG IVPB (16:23)
[2020-08-22 16:39] LABS: Alveolar/Arterial O2 Gradient 54.9 mmHg; Base Excess ABG 2.2 mEq/l (+/-2.0); Carboxyhemoglobin 1.4 % THb (0-2.0); Fractional Inspired Oxygen 21 %; HCO3 ABG 24.4 mEq/l (22.0-26.0); Methemoglobin ABG 0.2 %THb (0-1.5); Oxygen Content ABG 16.5 %vol (16.0-22.0); Oxygen Saturation ABG 92.9 % (95.0-100.0); Oxyhemoglobin 88.8 % THb (90.0-100.0); PCO2 ABG 30.9 mmHg (35.0-45.0); PO2 ABG 57.8 mmHg (80.0-100.0); PO2 FiO2 Ratio Arterial Blood 2.75 %; Reduced Hemoglobin 9.6 %THb (0-5.0); Total Hemoglobin 13.2 g/dL (12.0-18.0)
[2020-08-22 16:40] LABS: pH ABG 7.516 (7.350-7.450)
[2020-08-22 16:41] LABS: Device ROOM AIR; Modified Allen's Test Pass; Site Drawn LEFT RADIAL
--- NOTE | 2020-08-22 17:10 | PC.NURSE ---
[facility] rn contacted. pt initially tested positive for covid on 04/24/20.
--- NOTE | 2020-08-22 19:13 | PC.NURSE ---
This patient, Yanira Campa, was admitted to [facility] Surg Room 331-01 on 08/22/20 @ 1855. Patient/family oriented to hospital policies and general routines including ID bracelet, bed and alarms, visiting hours, pain management, procedures, bathroom and other care routines, personal items, smoking policy, room service/diet, and visiting hours. Information on how to activate the Rapid Response Team has been discussed. Patient/Family are encouraged to report perceived risks to care and to ask questions if they do not understand what they are told or what they should do.
--- NOTE | 2020-08-22 19:40 | PM.IMHP ---
H&P: HPI History of Present Illness Date/Time: 08/22/20 19:40 Chief Complaint: Fever and body aches for 3 days++ Narrative: This is a 70 year old morbidly obese Diabetic female with known history of atrial fibrillation on chronic Xarelto therapy and diastolic heart failure who [facility] secondary to generalized weakness for the past three days with associated intermittent fever and body aches. She denies any shortness of breath, cough, chest pain, palpitations, abdominal pain, dysuria, nausea, vomiting, diarrhea, or rectal bleeding. The patient is known to have chronic lower extremity swelling and is mostly bed bound now. She only gets up for transfers to use the toilet. The patient tested positive for COVID-19 today. She has apparently had both COVID vaccines recently and had a COVID infection back in April. Today in the ER the patient was evaluated and found to have hypokalemia and hypomagnesemia. The patient was treated with 1 liter of IV fluids, IV antibiotics, magnesium and potassium in the ER today. She has been admitted for continued care. No other complaints. Review of Systems Review of Systems: All systems reviewed & are unremarkable except as noted in HPI and below PMFSH Past Medical History Medical History (Updated 08/22/20 @ 20:09 by Tulio Soriano MD) Anxiety Arthritis Asthma COPD (chronic obstructive pulmonary disease) Diastolic CHF With grade 2 diastolic dysfunction noted on echocardiogram March 2017 but most recent echo January 2019 demonstrated normal diastolic function with EF of 60-65% Diastolic congestive heart failure DM (diabetes mellitus) Hemoglobin A1c October 2018 was 13.4 hemoglobin A1c February 2019 was 7.1 DVT (deep venous thrombosis) In 2004 due to prolonged inactivity Elevated troponin Essential hypertension Heart murmur History of pneumonia Hx of fracture of foot Hypophosphatemia Influenza A Internal hemorrhoid Noted on colonoscopy February 2015 Paroxysmal atrial fibrillation Peripheral neuropathy With history complicated by prior diabetic foot wound Peripheral vascular disease Rhabdomyolysis Shingles 2013 Sick sinus syndrome With Medtronic pacemaker placement January [address] Biggs Surgical History Surgical History Amputated toe of right foot 2nd toe History of appendectomy History of toe surgery ORIF of left toe 1989 History of tonsillectomy History of ventral hernia repair Complicated ventral hernia repair with mesh placement March 2015 Normal colonoscopy With internal hemorrhoids February 2015 Previous section Family History Family History Brother Diabetes mellitus Coronary artery disease Hypertension Mother Pancreatic cancer Sister Coronary artery disease, Onset Age: 60 Dementia Son Cerebral palsy WPW (Fnrgh-Vnhfvohfs-Rszbo syndrome) Small bowel obstruction of complications of small-bowel obstruction Social History Social History Social History: The patient is and lives with her . 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 She ambulates with the boot on her leg and central supply assistant devices. Patient is a full code. She has never smoked. She had 1 son and he due to small-bowel obstruction and he has cerebral palsy. Code status: Full code Primary care physician: Dr. Jaden Alfredo Smoking status: Unknown if ever smoked Second hand tobacco smoke exposure: No Alcohol intake: unknown Substance use: unknown Substance use type: does not use Additional living arrangements comments: She lives with her of 47 years. She ambulates with assistive devices. 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 Gender identity (if verbalized by the patient):
[2020-08-22] MEDS: LEVALBUTEROL HFA (*SP) 15 GM INHALER 2 PUFF INHALATION (21:29)
[2020-08-23] VITALS (9 sets, daily range): BP systolic 91–124; BP diastolic 44–68; PULSE 87–117; RESP 20; TEMP 36.4–37.3; O2SAT 90–95
[2020-08-23 00:01] LABS: Glucose Point of Care 118 (65-105)
[2020-08-23] MEDS: LEVALBUTEROL HFA (*SP) 15 GM INHALER 2 PUFF INHALATION ×4 (02:25→21:09)
[2020-08-23 02:28] LABS: Basophils Percent Auto 0.2 % (0.2-1.2); Eosinophils Absolute Auto 0.1 K/mm3 (0-0.3); Hematocrit 41.6 % (37.0-47.0); Hemoglobin 13.6 g/dL (12.0-15.0); Immature Granulocyte Absolute 0.05 K/mm3 (0.00-0.031); Immature Granulocyte Percent A 0.4 % (0-0.5); Lymphocytes Absolute Auto 2.39 K/mm3 (0.9-3.2); Lymphocytes Percent Auto 19.1 % (18.3-44.2); Mean Corpuscular HGB Conc 32.7 g/dl (32-36); Mean Corpuscular Hemoglobin 30.8 pg (26-34); Mean Corpuscular Volume 94.1 fl (80-100); Mean Platelet Volume 9.7 fl (7.4-10.4); Monocytes Absolute Auto 1.2 K/mm3 (0.1-0.6); Monocytes Percent Auto 9.3 % (2.6-8.5); Neutrophils Absolute Auto 8.8 K/mm3 (1.3-6.7); Platelet Count Result 193 k/mm3 (150-375); Red Blood Count 4.42 M/mm3 (4.2-5.4); Red Cell Distribution Width 13.8 % (11.5-14.5); White Blood Count 12.5 K/mm3 (4.5-10.0)
[2020-08-23 03:17] LABS: Alanine Aminotransferase 8 U/L (4-35); Albumin Level 3.2 g/dL (3.5-5.1); Alkaline Phosphatase 85 U/L (38-126); Anion Gap 4 mmol/L (8-16); Aspartate Amino Transferase 21 U/L (14-36); Bilirubin,Total 0.6 mg/dL (0.2-1.3); Blood Urea Nitrogen 21 mg/dL (7-17); Calcium 8.4 mg/dL (8.4-10.2); Carbon Dioxide 38 mmol/L (22-30); Chloride 96 mmol/L (98-107); Estimated CRCL calculation 57 ml/min; Estimated Glomerular Filt Rate 49; Glucose 158 mg/dL (65-105); Potassium 2.4 mmol/L (3.4-5.0); Sodium 138 mmol/L (137-145)
[2020-08-23 03:33] LABS: Magnesium 1.8 mg/dL (1.6-2.3)
[2020-08-23] MEDS: FAMOTIDINE 20 MG/2 ML VIAL IV PUSH (03:52)
[2020-08-23] MEDS: TOLNAFTATE 1% POWDER 45 GM BTL 1 APPLIC TOPICAL ×5 (03:53→21:09)
--- NOTE | 2020-08-23 04:57 | PC.NURSE ---
Received critical low K+ result at 03:15 for Ms. Campa, notified Dr. Soriano immediately after and he said he would put in orders.
[2020-08-23 09:19] LABS: Glucose Point of Care 202 (65-105)
[2020-08-23] MEDS: INSULIN ASPART (*BKC) 100 UNITS/ML SUB-Q ×3 (09:20→17:24)
[2020-08-23] MEDS: INSULIN GLARGINE (*BKC) 100 UNITS/ML 20 UNITS SUB-Q (09:21)
[2020-08-23] MEDS: RIVAROXABAN 2.5 MG TABLET PO ×2 (09:24→17:25)
[2020-08-23] MEDS: LORATADINE 10 MG TABLET PO (09:24)
[2020-08-23] MEDS: METOPROLOL SUCCINATE EXT REL 25 MG TABCR PO ×2 (09:24→17:26)
[2020-08-23] MEDS: polyethylene glycoL 3350 17 GM POWD.PACK PO (09:24)
[2020-08-23] MEDS: THERAPEUTIC MULTIVITAMINS/MINERALS TAB (*BKC) 1 TABLET PO (09:24)
[2020-08-23] MEDS: PANTOPRAZOLE SOD SESQUIHYDRATE 20 MG TAB PO (09:24)
[2020-08-23] MEDS: METOCLOPRAMIDE HCL 5 MG TABLET PO ×3 (09:24→17:25)
[2020-08-23] MEDS: DOCUSATE SODIUM 100 MG CAPSULE PO ×2 (09:24→17:25)
[2020-08-23 11:06] LABS: Anion Gap 3 mmol/L (8-16); Blood Urea Nitrogen 18 mg/dL (7-17); Calcium 7.9 mg/dL (8.4-10.2); Carbon Dioxide 36 mmol/L (22-30); Chloride 96 mmol/L (98-107); Estimated CRCL calculation 62 ml/min; Estimated Glomerular Filt Rate 55; Glucose 214 mg/dL (65-105); Potassium 2.7 mmol/L (3.4-5.0); Sodium 135 mmol/L (137-145)
[2020-08-23 13:34] LABS: Glucose Point of Care 207 (65-105)
--- NOTE | 2020-08-23 15:28 | PM.IMPN ---
Progress Note: A&P Assessment and Plan (1) Acute exacerbation of CHF (congestive heart failure): Qualifiers: Heart failure type: diastolic Qualified Code(s): I50.33 - Acute on chronic diastolic (congestive) heart failure Code(s): I50.9 - Heart failure, unspecified Status: Acute Assessment and Plan: Continue diuresis gentle I/O's daily Fluid restriction (2) COVID-19: Code(s): U07.1 - COVID-19 Status: Acute Assessment and Plan: Awaiting results Ruling out (3) Hypomagnesemia: Code(s): E83.42 - Hypomagnesemia Status: Acute Assessment and Plan: Replace as needed (4) Diabetic neuropathy: Code(s): E11.40 - Type 2 diabetes mellitus with diabetic neuropathy, unspecified Status: Acute Assessment and Plan: Continue home meds (5) Paroxysmal atrial fibrillation: Code(s): I48.0 - Paroxysmal atrial fibrillation Status: Chronic Assessment and Plan: Rate controlled. Subjective Date/time seen: 08/23/20 15:28 Patient states that she feels much better Review of Systems Review of Systems: Narrative: denies any issues currently. Constitutional: Comments: no fevers, no rigors, no chills. ENT: Comments: no nasal congestion, no throat pain. Cardiovascular: Comments: leg swelling, sob. Respiratory: Comments: no cough, no sputum production Gastrointestinal: Comments: no n/v/abdominal pain. Musculoskeletal: Comments: no joint pain. Integumentary/Breasts: Comments: no rashes. Neurologic: Comments: no sensory motor deficit. Exam Narrative: Exam Narrative: Lying in bed Const: General: comfortable, no acute distress, alert, awake and other (Chronically ill looking.) Nutritional Appearance: other (Obese) Orientation/consciousness: patient oriented x3 HENMT: Head: normal to inspection and normocephalic Ears: hearing grossly normal bilaterally General nose exam: Normal external nose present Face and sinus: normal facial exam Eyes: General: appearance normal, both eyes and all related structures Pupils: Equal, round and reactive pupils present EOM: EOMs intact bilaterally Neck: Neck: no lymphadenopathy, supple and no JVD Resp: Effort & Inspection: able to speak in complete sentences Auscultation: clear to auscultation bilaterally Cardio: Rate: regular rate Rhythm: regular rhythm GI: Inspection: Pannus present and obesity GI Palp: Yes Soft to palpation and Yes No hepatosplenomegaly present Skin: Rashes: no rashes Neuro: General: patient oriented x3 and CN's II-XI intact bilaterally Cranial nerves: Yes CN's II-XII intact bilaterally and Yes Bilaterally intact EOM present Cognition (Neuro): normal cognition Speech: normal speech Motor exam (neuro): 5/5 motor strength present throughout Extrem: General: no pedal edema Objective Data Vital Signs Vital Signs: Vital Signs - 24 hr 08/22/20 15:30 08/22/20 15:55 08/22/20 16:00 Temperature Pulse Rate 105 H 110 H 103 H Respiratory Rate 22 H 30 H 26 H Blood Pressure 104/75 Pulse Oximetry 95 94 94 08/22/20 16:01 08/22/20 16:15 08/22/20 16:16 Temperature Pulse Rate 101 H 108 H 119 H Respiratory Rate 21 H 19 21 H Blood Pressure 114/75 111/78 Pulse Oximetry 92 95 97 08/22/20 16:30 08/22/20 16:31 08/22/20 16:32 Temperature Pulse Rate 121 H 92 100 Respiratory Rate 25 H 26 H 20 Blood Pressure 101/64 Pulse Oximetry 95 92 93 08/22/20 17:05 08/22/20 17:15 08/22/20 17:16 Temperature Pulse Rate 103 H 97 94 Respiratory Rate 23 H 19 28 H Blood Pressure 95/67 L Pulse Oximetry 96 96 99 08/22/20 17:30 08/22/20 17:31 08/22/20 17:45 Temperature Pulse Rate 116 H 93 97 Respiratory Rate 26 H 25 H 30 H Blood Pressure 106/71 Pulse Oximetry 91 93 92 08/22/20 18:24 08/22/20 20:00 08/22/20 21:33 Temperature 99.2 F 99.3 F Pulse Rate 91 Respiratory Rate 20 Blood Pressure 99/72 L Pulse Oximetry 95 94 03
[2020-08-23] MEDS: GABAPENTIN 300 MG CAPSULE PO (17:25)
[2020-08-23 17:37] LABS: Glucose Point of Care 231 (65-105)
[2020-08-23 19:07] LABS: Potassium 2.9 mmol/L (3.4-5.0)
--- NOTE | 2020-08-23 20:58 | PC.NURSE ---
Family dropped off bag of belongings for Ms. Doyle including 2 bottles of blackberry bubbly water, 2 flavored roach, baby powder, lavendar room spray, cell phone and appliance assembler, a medtronic device, 2 notebooks, one crossword book and hand orientation and mobility specialist. Belongings were placed in his room. -SKINNY RN
[2020-08-23] MEDS: INSULIN GLARGINE (*BKC) 100 UNITS/ML 10 UNITS SUB-Q (21:09)
[2020-08-23 22:21] LABS: Glucose Point of Care 227 (65-105)
[2020-08-24] VITALS (11 sets, daily range): BP systolic 105–119; BP diastolic 64–72; PULSE 81–120; RESP 18–20; TEMP 36.1–37.1; O2SAT 93–98
[2020-08-24] MEDS: LEVALBUTEROL HFA (*SP) 15 GM INHALER 2 PUFF INHALATION ×4 (01:34→20:48)
[2020-08-24 07:55] LABS: Hematocrit 40.3 % (37.0-47.0); Hemoglobin 13.4 g/dL (12.0-15.0); Mean Corpuscular HGB Conc 33.3 g/dl (32-36); Mean Corpuscular Hemoglobin 30.9 pg (26-34); Mean Corpuscular Volume 92.9 fl (80-100); Mean Platelet Volume 9.8 fl (7.4-10.4); Platelet Count Result 222 k/mm3 (150-375); Red Blood Count 4.34 M/mm3 (4.2-5.4); Red Cell Distribution Width 13.4 % (11.5-14.5); White Blood Count 11.6 K/mm3 (4.5-10.0)
[2020-08-24 08:08] LABS: Anion Gap 2 mmol/L (8-16); Blood Urea Nitrogen 14 mg/dL (7-17); Calcium 8.1 mg/dL (8.4-10.2); Carbon Dioxide 36 mmol/L (22-30); Chloride 97 mmol/L (98-107); Estimated CRCL calculation 68 ml/min; Estimated Glomerular Filt Rate > 60; Glucose 170 mg/dL (65-105); Potassium 2.9 mmol/L (3.4-5.0); Sodium 135 mmol/L (137-145)
[2020-08-24] MEDS: polyethylene glycoL 3350 17 GM POWD.PACK PO (08:20)
[2020-08-24] MEDS: LORATADINE 10 MG TABLET PO (08:20)
[2020-08-24] MEDS: METOCLOPRAMIDE HCL 5 MG TABLET PO ×3 (08:20→17:30)
[2020-08-24] MEDS: PANTOPRAZOLE SOD SESQUIHYDRATE 20 MG TAB PO (08:20)
[2020-08-24] MEDS: DOCUSATE SODIUM 100 MG CAPSULE PO ×2 (08:20→17:29)
[2020-08-24] MEDS: GABAPENTIN 300 MG CAPSULE PO ×3 (08:21→17:31)
[2020-08-24] MEDS: METOPROLOL SUCCINATE EXT REL 25 MG TABCR PO ×2 (08:21→17:32)
[2020-08-24] MEDS: RIVAROXABAN 2.5 MG TABLET PO ×2 (08:21→17:30)
[2020-08-24] MEDS: THERAPEUTIC MULTIVITAMINS/MINERALS TAB (*BKC) 1 TABLET PO (08:21)
[2020-08-24] MEDS: TOLNAFTATE 1% POWDER 45 GM BTL 1 APPLIC TOPICAL ×4 (08:21→20:49)
[2020-08-24 08:30] LABS: Glucose Point of Care 49 (65-105)
[2020-08-24 08:30] LABS: Glucose Point of Care 52 (65-105)
[2020-08-24] MEDS: ACETAMINOPHEN 500 MG TABLET PO ×2 (10:42→21:00)
--- NOTE | 2020-08-24 10:52 | WPDCDIQUERY2 ---
CDI Query Clarification Request - Sepsis, source of sepsis is likely COVID infection documented in H&P - No acute organ dysfunction noted, blood cultures preliminary are negative, lactic acid only 1.3 - Sepsis not on problem list Please clarify if sepsis was ruled in or ruled out. <Karen Moore RN - Last Filed: 08/24/20 10:55> Clarified Diagnosis (1) Sepsis: Qualifiers: Sepsis type: sepsis due to unspecified organism Sepsis acute organ dysfunction status: unspecified Qualified Code(s): A41.9 - Sepsis, unspecified organism <Karen Moore RN - Last Filed: 08/24/20 10:55> Code(s): A41.9 - Sepsis, unspecified organism <Karen Moore RN - Last Filed: 08/24/20 10:55> Status: Acute <Karen Moore RN - Last Filed: 08/24/20 10:55> Assessment and Plan: Sepsis has been ruled out. <Ruby Villavicencio MD - Last Filed: 08/24/20 17:56>
[2020-08-24 12:36] LABS: Glucose Point of Care 241 (65-105)
[2020-08-24] MEDS: INSULIN ASPART (*BKC) 100 UNITS/ML SUB-Q ×2 (13:52→17:47)
[2020-08-24 17:34] LABS: Glucose Point of Care 219 (65-105)
[2020-08-24] MEDS: FUROSEMIDE INJ 40 MG/4 ML VIAL IV PUSH (17:44)
--- NOTE | 2020-08-24 17:56 | PM.IMPN ---
Progress Note: A&P Assessment and Plan (1) Pneumonia: Code(s): J18.9 - Pneumonia, unspecified organism Status: Acute Assessment and Plan: Currently on Rocephin and Zihromax Will repeat chest xr in am Appears to have improved. (2) Acute exacerbation of CHF (congestive heart failure): Qualifiers: Heart failure type: diastolic Qualified Code(s): I50.33 - Acute on chronic diastolic (congestive) heart failure Code(s): I50.9 - Heart failure, unspecified Status: Acute Assessment and Plan: Gentle diuresis Strict I/O's (3) Acute hypokalemia: Code(s): E87.6 - Hypokalemia Status: Acute Assessment and Plan: Replace as needed Daily BMP (4) Diabetic neuropathy: Code(s): E11.40 - Type 2 diabetes mellitus with diabetic neuropathy, unspecified Status: Acute Assessment and Plan: Unchanged. (5) Chronic venous stasis: Code(s): I87.8 - Other specified disorders of veins Status: Acute Assessment and Plan: Stable Compression stockins (6) Diastolic CHF: Code(s): I50.30 - Unspecified diastolic (congestive) heart failure Status: Acute Assessment and Plan: Acute on chronic Strict I/O's Fluid restriction (7) Paroxysmal atrial fibrillation: Code(s): I48.0 - Paroxysmal atrial fibrillation Status: Chronic Assessment and Plan: Stable Rate controlled (8) DM (diabetes mellitus): Qualifiers: Diabetes mellitus type: type 2 Diabetes mellitus alf insulin use: without exterminator helper use Diabetes mellitus complication status: without complication Qualified Code(s): E11.9 - Type 2 diabetes mellitus without complications Code(s): E11.9 - Type 2 diabetes mellitus without complications Status: Chronic Assessment and Plan: Accu checks ACHS ISS as needed On Lantus Hypoglycemic episode today Holding insulin (9) Sick sinus syndrome: Code(s): I49.5 - Sick sinus syndrome Status: Chronic Assessment and Plan: Pacemaker in situs. (10) Weakness: Code(s): R53.1 - Weakness Status: Acute Assessment and Plan: PT/OT (11) Sepsis: Qualifiers: Sepsis type: sepsis due to unspecified organism Sepsis acute organ dysfunction status: unspecified Qualified Code(s): A41.9 - Sepsis, unspecified organism Code(s): A41.9 - Sepsis, unspecified organism Status: Acute Assessment and Plan: Ruled out Subjective Date/time seen: 08/24/20 17:56 States that she feels better today. Review of Systems Review of Systems: Narrative: no new issues Exam Narrative: Exam Narrative: Lying in bed Const: General: comfortable, no acute distress, alert, awake and Physically active Nutritional Appearance: overweight Orientation/consciousness: patient oriented x3 HENMT: Head: normal to inspection and normocephalic Ears: hearing grossly normal bilaterally General nose exam: Normal external nose present Face and sinus: normal facial exam Eyes: General: appearance normal, both eyes and all related structures Pupils: Equal, round and reactive pupils present EOM: EOMs intact bilaterally Neck: Neck: no lymphadenopathy, supple and no JVD Resp: Effort & Inspection: able to speak in complete sentences Auscultation: clear to auscultation bilaterally Cardio: Jugular venous distension: no JVD Rate: regular rate Rhythm: regular rhythm GI: GI Palp: Yes Soft to palpation and Yes No hepatosplenomegaly present Skin: Rashes: no rashes Wounds: no wounds Neuro: General: patient oriented x3 and CN's II-XI intact bilaterally Cranial nerves: Yes CN's II-XII intact bilaterally, Yes Equal, round and reactive pupils present and Yes Bilaterally intact EOM present Cognition (Neuro): normal cognition Speech: normal speech Motor exam (neuro): 5/5 motor strength present throughout Extrem: General: edema bilateral Objective Data Vital Sig
[2020-08-24] MEDS: INSULIN GLARGINE (*BKC) 100 UNITS/ML 10 UNITS SUB-Q (20:47)
[2020-08-24 21:36] LABS: Glucose Point of Care 325 (65-105)
[2020-08-25] VITALS (12 sets, daily range): BP systolic 111–143; BP diastolic 61–97; PULSE 74–135; RESP 18–20; TEMP 35.9–36.6; O2SAT 91–100
[2020-08-25] MEDS: LEVALBUTEROL HFA (*SP) 15 GM INHALER 2 PUFF INHALATION ×4 (02:45→20:22)
[2020-08-25 07:52] LABS: Glucose Point of Care 217 (65-105)
[2020-08-25] MEDS: INSULIN ASPART (*BKC) 100 UNITS/ML SUB-Q ×3 (08:43→17:35)
[2020-08-25] MEDS: GABAPENTIN 300 MG CAPSULE PO ×3 (08:44→17:36)
[2020-08-25] MEDS: PANTOPRAZOLE SOD SESQUIHYDRATE 20 MG TAB PO (08:46)
[2020-08-25] MEDS: METOPROLOL SUCCINATE EXT REL 25 MG TABCR PO ×2 (08:46→17:36)
[2020-08-25] MEDS: METOCLOPRAMIDE HCL 5 MG TABLET PO ×3 (08:47→17:36)
[2020-08-25] MEDS: RIVAROXABAN 2.5 MG TABLET PO ×2 (08:47→17:38)
[2020-08-25] MEDS: THERAPEUTIC MULTIVITAMINS/MINERALS TAB (*BKC) 1 TABLET PO (08:47)
[2020-08-25] MEDS: LORATADINE 10 MG TABLET PO (08:47)
[2020-08-25] MEDS: INSULIN GLARGINE (*BKC) 100 UNITS/ML 20 UNITS SUB-Q (08:47)
[2020-08-25] MEDS: TOLNAFTATE 1% POWDER 45 GM BTL 1 APPLIC TOPICAL ×4 (08:48→20:29)
[2020-08-25 11:49] LABS: Glucose Point of Care 285 (65-105)
[2020-08-25] MEDS: FUROSEMIDE INJ 40 MG/4 ML VIAL IV PUSH ×2 (12:28→17:36)
--- NOTE | 2020-08-25 13:30 | PCPTNOTE ---
Per chart, patient has had COVID recently...she has also received the vaccine...there is not PPE outside of her door, and apparently it's up to therapist whether or not they decide to gown up...speak with nursing
--- NOTE | 2020-08-25 15:21 | PM.IMPN ---
Progress Note: A&P Assessment and Plan (1) Pneumonia: Code(s): J18.9 - Pneumonia, unspecified organism Status: Acute Assessment and Plan: Seems to have improved clinically. Continue Rocephin and Zithromax for 1 more day of added iv antibiotic Supportive care (2) Diabetic neuropathy: Code(s): E11.40 - Type 2 diabetes mellitus with diabetic neuropathy, unspecified Status: Acute Assessment and Plan: Continue Gabapentin (3) COPD (chronic obstructive pulmonary disease): Code(s): J44.9 - Chronic obstructive pulmonary disease, unspecified Status: Chronic Assessment and Plan: Breathing treatment Clinically much improved (4) Sick sinus syndrome: Code(s): I49.5 - Sick sinus syndrome Status: Chronic Assessment and Plan: Pacemaker in situ (5) Fluid overload: Code(s): E87.70 - Fluid overload, unspecified Status: Acute Assessment and Plan: Chest xr with conflicting infiltrates diuresing also on antibiotics Will repeat chest xr in am to re assess BNP has been requested as well Fluid restriction Diuresing Daily strict I/O's Subjective Date/time seen: 08/25/20 15:21 States that she slept well. Review of Systems Review of Systems: Narrative: No new issues. Exam Narrative: Exam Narrative: Lying in bed Const: General: comfortable, no acute distress, alert, awake and Physically active Nutritional Appearance: other (morbid obesity) Orientation/consciousness: patient oriented x3 HENMT: Head: normal to inspection and normocephalic Ears: hearing grossly normal bilaterally General nose exam: Normal external nose present Face and sinus: normal facial exam Eyes: General: appearance normal, both eyes and all related structures Pupils: Equal, round and reactive pupils present EOM: EOMs intact bilaterally Neck: Neck: no lymphadenopathy, supple and no JVD Resp: Effort & Inspection: able to speak in complete sentences Auscultation: clear to auscultation bilaterally and diminished lung sounds Cardio: Jugular venous distension: no JVD Rate: regular rate Rhythm: regular rhythm GI: Inspection: Pannus present and obesity GI Palp: Yes Soft to palpation and Yes No hepatosplenomegaly present Skin: Rashes: no rashes Wounds: no wounds Neuro: General: patient oriented x3 and CN's II-XI intact bilaterally Cranial nerves: Yes CN's II-XII intact bilaterally, Yes Equal, round and reactive pupils present and Yes Bilaterally intact EOM present Cognition (Neuro): normal cognition Motor exam (neuro): 5/5 motor strength present throughout Extrem: General: pedal edema Objective Data Vital Signs Vital Signs: Vital Signs - 24 hr 08/24/20 16:00 08/24/20 17:32 08/24/20 20:00 Temperature Pulse Rate 90 90 89 Respiratory Rate Blood Pressure Pulse Oximetry 97 08/24/20 22:00 08/25/20 00:00 08/25/20 04:00 Temperature 97.0 F L Pulse Rate 81 89 88 Respiratory Rate 18 Blood Pressure 119/72 Pulse Oximetry 98 08/25/20 06:00 08/25/20 08:00 08/25/20 08:46 Temperature 97.9 F Pulse Rate 74 100 100 Respiratory Rate 20 20 Blood Pressure 111/73 Pulse Oximetry 100 100 08/25/20 11:13 08/25/20 12:00 08/25/20 14:00 Temperature 97.2 F L Pulse Rate 135 H 99 Respiratory Rate 18 Blood Pressure 143/97 H Pulse Oximetry 91 97 Intake/Output Intake/Output: Intake & Output 08/22/20 08/23/20 08/24/20 08/25/20 23:59 23:59 23:59 23:59 Intake Total 700 2810 2320 680 Output Total 2600 2850 2000 Balance 700 722 -855 -1354 Meds/Results Medications: Active Medications Generic Name Dose Route Start Last Admin Trade Name Freq PRN Reason Stop Dose Admin Acetaminophen 500 mg 08/23/20 01:09 08/24/20 21:00 Acetaminophen 500 Mg Tablet PO 500 mg Q6H PRN Administration Pain Rated 1-3 Dextrose 12.5 gm 08/22/20 17:23 Dextrose 50% 25 Gm/50 Ml Syringe IV PUSH PRN PRN Hypoglycemia
[2020-08-25 16:55] LABS: Glucose Point of Care 211 (65-105)
[2020-08-25 17:01] LABS: NT Pro B Type Natriuretic Pept 2420 PG/ML (5-100)
[2020-08-25] MEDS: INSULIN GLARGINE (*BKC) 100 UNITS/ML 10 UNITS SUB-Q (20:26)
[2020-08-25 21:06] LABS: Glucose Point of Care 245 (65-105)
[2020-08-25] MEDS: ACETAMINOPHEN 500 MG TABLET PO (22:21)
[2020-08-26] MEDS: LEVALBUTEROL HFA (*SP) 15 GM INHALER 2 PUFF INHALATION ×2 (01:56→08:00)
[2020-08-26 06:00] VITALS: BP 106/63; PULSE 82; RESP 18; TEMP 36.3; O2SAT 99
[2020-08-26 07:59] LABS: Basophils Percent Auto 0.2 % (0.2-1.2); Eosinophils Absolute Auto 0.4 K/mm3 (0-0.3); Eosinophils Percent Auto 3.7 % (0-4.4); Hematocrit 41.2 % (37.0-47.0); Hemoglobin 13.5 g/dL (12.0-15.0); Immature Granulocyte Absolute 0.05 K/mm3 (0.00-0.031); Immature Granulocyte Percent A 0.5 % (0-0.5); Lymphocytes Absolute Auto 2.42 K/mm3 (0.9-3.2); Lymphocytes Percent Auto 23.2 % (18.3-44.2); Mean Corpuscular HGB Conc 32.8 g/dl (32-36); Mean Corpuscular Volume 91.6 fl (80-100); Mean Platelet Volume 9.9 fl (7.4-10.4); Monocytes Absolute Auto 0.9 K/mm3 (0.1-0.6); Monocytes Percent Auto 8.3 % (2.6-8.5); Neutrophils Absolute Auto 6.7 K/mm3 (1.3-6.7); Neutrophils Percent Auto 64.1 % (45.5-73.1); Platelet Count Result 275 k/mm3 (150-375); Red Cell Distribution Width 13.5 % (11.5-14.5); White Blood Count 10.4 K/mm3 (4.5-10.0)
[2020-08-26 08:00] VITALS: PULSE 88; RESP 18; O2SAT 99
[2020-08-26 08:13] LABS: Glucose Point of Care 190 (65-105)
[2020-08-26 08:21] LABS: Anion Gap 5 mmol/L (8-16); Blood Urea Nitrogen 21 mg/dL (7-17); Calcium 8.4 mg/dL (8.4-10.2); Carbon Dioxide 35 mmol/L (22-30); Chloride 94 mmol/L (98-107); Estimated CRCL calculation 68 ml/min; Estimated Glomerular Filt Rate > 60; Glucose 183 mg/dL (65-105); Potassium 2.5 mmol/L (3.4-5.0); Sodium 134 mmol/L (137-145)
[2020-08-26 08:46] VITALS: PULSE 88
[2020-08-26] MEDS: DOCUSATE SODIUM 100 MG CAPSULE PO (08:46)
[2020-08-26] MEDS: METOCLOPRAMIDE HCL 5 MG TABLET PO ×2 (08:46→12:53)
[2020-08-26] MEDS: THERAPEUTIC MULTIVITAMINS/MINERALS TAB (*BKC) 1 TABLET PO (08:46)
[2020-08-26] MEDS: PANTOPRAZOLE SOD SESQUIHYDRATE 20 MG TAB PO (08:46)
[2020-08-26] MEDS: METOPROLOL SUCCINATE EXT REL 25 MG TABCR PO (08:46)
[2020-08-26] MEDS: GABAPENTIN 300 MG CAPSULE PO ×2 (08:48→12:53)
[2020-08-26] MEDS: FUROSEMIDE INJ 40 MG/4 ML VIAL IV PUSH (08:48)
[2020-08-26] MEDS: RIVAROXABAN 2.5 MG TABLET PO (08:49)
[2020-08-26] MEDS: INSULIN GLARGINE (*BKC) 100 UNITS/ML 20 UNITS SUB-Q (08:49)
[2020-08-26] MEDS: TOLNAFTATE 1% POWDER 45 GM BTL 1 APPLIC TOPICAL ×2 (08:49→08:50)
[2020-08-26] MEDS: polyethylene glycoL 3350 17 GM POWD.PACK PO (08:49)
[2020-08-26] MEDS: LORATADINE 10 MG TABLET PO (08:50)
--- NOTE | 2020-08-26 10:02 | PM.DS ---
DS: Admitting Diagnosis Admitting Diagnosis Admitting Diagnosis: (1) Acute hypokalemia: (2) Hypomagnesemia: (3) COVID-19: (4) Acute exacerbation of CHF (congestive heart failure): . (5) Sepsis: (6) COPD (chronic obstructive pulmonary disease): (7) DM (diabetes mellitus): (8) Weakness: (9) Paroxysmal atrial fibrillation: DS: Discharge Diagnosis Discharge Diagnosis (1) Fluid overload: Code(s): E87.70 - Fluid overload, unspecified Status: Acute Assessment and Plan: patient was a slightly elevated BNP she was diuresed did well (2) COVID-19: Code(s): U07.1 - COVID-19 Status: Acute Assessment and Plan: ruled out (3) Hypomagnesemia: Code(s): E83.42 - Hypomagnesemia Status: Acute Assessment and Plan: replaced as needed (4) Acute exacerbation of CHF (congestive heart failure): Qualifiers: Heart failure type: diastolic Qualified Code(s): I50.33 - Acute on chronic diastolic (congestive) heart failure Code(s): I50.9 - Heart failure, unspecified Status: Acute Assessment and Plan: echocardiogram was done ejection fraction 60-65 mainly diastolic dysfunction (5) Pneumonia: Code(s): J18.9 - Pneumonia, unspecified organism Status: Acute Assessment and Plan: responded well to cyto max on Rocephin (6) Acute hypokalemia: Code(s): E87.6 - Hypokalemia Status: Acute (7) Diastolic CHF: Code(s): I50.30 - Unspecified diastolic (congestive) heart failure Status: Acute Assessment and Plan: diuresed follow-up in the outpatient setting (8) COPD (chronic obstructive pulmonary disease): Code(s): J44.9 - Chronic obstructive pulmonary disease, unspecified Status: Chronic Assessment and Plan: breathing treatments as needed continue home maintenance (9) Paroxysmal atrial fibrillation: Code(s): I48.0 - Paroxysmal atrial fibrillation Status: Chronic Assessment and Plan: rate control (10) Pressure ulcer, stage 1: Code(s): L89.91 - Pressure ulcer of unspecified site, stage 1 Status: Acute Assessment and Plan: local care (11) Sick sinus syndrome: Code(s): I49.5 - Sick sinus syndrome Status: Chronic Assessment and Plan: a status post pacemaker placement (12) Weakness: Code(s): R53.1 - Weakness Status: Acute Assessment and Plan: likely secondary to acute illness participated in PT OT therapy sessions the patient was discharged to retirement facility DS: Summary Hospital Course Reason for hospitalization: shortness of breath Hospital Course: 70-year-old female with past medical history significant for congestive heart failure diabetes mellitus insulin dependent atrial fibrillation sick sinus syndrome pacemaker inserted. Patient presented to the emergency room due to worsening shortness of breath she was found to have infiltrates bilaterally on chest x-ray and a slightly elevated brain natriuretic peptide she was the wrist and treated with antibiotics as well she was ruled out for COVID-19 with negative serology. patient participated in PT OT therapy sedation and she was discharged to custodial a skilled facility. No consults were obtained no procedures were performed Status at Discharge Cognitive/behavioral status at discharge: AOX3 Time Spent with Patient Time attestation: Total time spent providing and/or coordinating discharge services: Exam Const: General: comfortable, no acute distress, well developed, alert and awake Nutritional Appearance: average body habitus Orientation/consciousness: patient oriented x3 HENMT: Head: normal to inspection, normocephalic and atraumatic Ears: hearing grossly normal bilaterally Face and sinus: normal facial exam Eyes: General: appearance normal, both eyes and all
[2020-08-26 11:16] VITALS: O2SAT 93
[2020-08-26 12:00] VITALS: BP 96/69; PULSE 94; RESP 20; TEMP 36.9; O2SAT 96
[2020-08-26 12:51] LABS: Glucose Point of Care 313 (65-105)
[2020-08-26] MEDS: INSULIN ASPART (*BKC) 100 UNITS/ML SUB-Q (12:53)
--- NOTE | 2020-08-27 06:53 | WPDCDIQUERY2 ---
CDI Query Clarification Request -Per EDP documentation, pt had a positive Covid test prior to arrival -COVID 19 documented in H&P -COVID 19 not on problem list in progress notes -Covid test result from 08/18 received from detention and scanned into record an is positive Please clarify if Covid 19 has been ruled in or ruled out. <Karen Moore RN - Last Filed: 08/27/20 06:57> Clarified Diagnosis (1) COVID-19: Code(s): U07.1 - COVID-19 <Karen Moore RN - Last Filed: 08/27/20 06:57> Status: Acute <Karen Moore RN - Last Filed: 08/27/20 06:57> Assessment and Plan: Not a candidate for Remdesivir as does not meet criteria Clinically doing well Chest xr repeat with resolving infiltrates on Rocephin and Zithromax Supportive care <Ruby Villavicencio MD - Last Filed: 08/27/20 07:26>
== END 2020-08-26 17:20 | DRG 177 ==
LOC: ANHED 17:22 → ANH3MEDSUR 19:13
PROVIDERS: Emergency Medicine Emergency Medical Services; Family Medicine; Admitting Provider Family Medicine; Emergency Provider Emergency Medicine; Visit Provider Internal Medicine
DX: U07.1 COVID-19 (principal); J12.82 Pneumonia due to coronavirus disease 2019; I50.33 Acute on chronic diastolic (congestive) heart failure; E87.3 Alkalosis; I48.91 Unspecified atrial fibrillation; I50.9 Heart failure, unspecified; I11.0 Hypertensive heart disease with heart failure; E87.6 Hypokalemia; J44.9 Chronic obstructive pulmonary disease, unspecified; I48.0 Paroxysmal atrial fibrillation; Z79.01 Long term (current) use of anticoagulants; E11.40 Type 2 diabetes mellitus with diabetic neuropathy, unspecified
CPT/HCPCS: 36415; 36600; 51701; 71045; 80048; 80053; 81001; 82375; 82805; 82948; 83050; 83605; 83735; 83880; 84132; 84484; 85025; 85027; 85610; 85730; 86140; 87040; 93005; 94640; 96365; 96366; 96368; 96375; 97162; 97166; 99285; A9270; G0378; J0131; J0456; J0696; J1815; J1940; J3475; J3480; J7040

== ENCOUNTER 2020-09-11 12:23 | Emergency (ER) | payer MEDICARE, MEDICAID, SELFPAY ==
[2020-09-11 12:27] VITALS: PULSE 0; RESP 0; O2SAT 0
--- NOTE | 2020-09-11 12:33 | PC.NURSE ---
code terminated. unsuccessful
--- NOTE | 2020-09-11 12:42 | ED.CPR ---
HPI - CPR General Stated Complaint: CARDIAC ARREST Time Seen by Provider: 09/11/20 12:25 Source: EMS Mode of arrival: EMS Limitations: clinical condition History of Present Illness HPI narrative: Patient is a 70-year-old female with a history of COVID-19 infection, diabetes, COPD, atrial fibrillation anticoagulated, who presented via EMS as cardiac arrest. Patient was having physical therapy at [facility] when she collapsed. CPR was done on scene, EMS arrived patient was in PEA had 3 rounds of epinephrine with CPR then noted to be in ventricular fibrillation rhythm, defibrillated twice, given amiodarone and transported to our facility. Anmol airway was placed in the field. Patient in PEA arrest at time of assessment. Related Data Home Medications Medication Instructions Recorded Confirmed Adult One Daily Multivitamin 0.4 mg PO DAILY 07/29/19 08/22/20 docusate sodium [Colace] 100 mg PO BID 07/29/19 08/22/20 ergocalciferol (vitamin D2) 50,000 unit PO WEEKLY 07/29/19 08/22/20 [Vitamin D2] ibuprofen 200 mg PO PRN PRN 07/29/19 08/22/20 insulin aspart U-100 [Novolog 1 sliding scale dose SUBCUT 07/29/19 08/22/20 U-100 Insulin aspart] TIDWMEAL loratadine 10 mg PO DAILY 07/29/19 08/22/20 omeprazole 20 mg PO DAILY 07/29/19 08/22/20 polyethylene glycol 3350 [Miralax] 17 g PO DAILY 07/29/19 08/22/20 furosemide [Lasix] 40 mg PO DAILY 03/20/20 08/22/20 gabapentin 300 mg PO TID 03/20/20 08/22/20 Lantus Solostar U-100 Insulin 10 unit SUBCUT HS 08/22/20 08/22/20 Lantus Solostar U-100 Insulin 20 unit SUBCUT DAILY 08/22/20 08/22/20 Xarelto 2.5 mg PO BID 08/22/20 08/22/20 acetaminophen 500 mg PO Q6H PRN 08/22/20 08/22/20 metoclopramide HCl [Reglan] 5 mg PO TIDWM 08/22/20 08/22/20 metolazone 5 mg PO DAILY 08/22/20 08/22/20 metoprolol succinate [Toprol XL] 25 mg PO BID 08/22/20 08/22/20 nystatin 1 applic TOPICAL BID 08/22/20 08/22/20 potassium chloride 20 meq PO BID 08/22/20 08/22/20 promethazine 25 mg PO PRN PRN 08/22/20 08/22/20 tramadol 50 mg PO PRN PRN 08/22/20 08/22/20 Allergies Allergy/AdvReac Type Severity Reaction Status Date / Time codeine Allergy Intermediate Verified 06/17/17 10:31 Review of Systems Review of Systems: ROS unobtainable: Yes unobtainable due to medical condition [facility] Past Medical History Medical History Anxiety Arthritis Asthma COPD (chronic obstructive pulmonary disease) Diastolic CHF With grade 2 diastolic dysfunction noted on echocardiogram March 2017 but most recent echo January 2019 demonstrated normal diastolic function with EF of 60-65% Diastolic congestive heart failure DM (diabetes mellitus) Hemoglobin A1c October 2018 was 13.4 hemoglobin A1c February 2019 was 7.1 DVT (deep venous thrombosis) In 2004 due to prolonged inactivity Elevated troponin Essential hypertension Heart murmur History of pneumonia Hx of fracture of foot Hypophosphatemia Influenza A Internal hemorrhoid Noted on colonoscopy February 2015 Paroxysmal atrial fibrillation Peripheral neuropathy With history complicated by prior diabetic foot wound Peripheral vascular disease Rhabdomyolysis Shingles 2013 Sick sinus syndrome With Medtronic pacemaker placement January [address] Biggs Surgical History Surgical History Amputated toe of right foot 2nd toe History of appendectomy History of toe surgery ORIF of left toe 1989 History of tonsillectomy History of ventral hernia repair Complicated ventral hernia repair with mesh placement March 2015 Normal colonoscopy With internal hemorrhoids February 2015 Previous section Family History Family History Brother Diabetes mellitus Coronary artery disease Hypertension Mother Pancreatic cancer Sister Coronary artery disease, Onset Age: 60 Dementia Son Cerebral palsy WPW ([place]-
[2020-09-11 14:53] VITALS: PULSE 0; RESP 0
== END 2020-09-11 15:15 | disposition expired ==
LOC: ANHED 13:08
PROVIDERS: Emergency Provider Emergency Medicine
DX: I46.9 Cardiac arrest, cause unspecified (principal); I48.0 Paroxysmal atrial fibrillation; J44.9 Chronic obstructive pulmonary disease, unspecified; E11.42 Type 2 diabetes mellitus with diabetic polyneuropathy; E11.51 Type 2 diabetes mellitus with diabetic peripheral angiopathy without gangrene; Z86.718 Personal history of other venous thrombosis and embolism; I49.5 Sick sinus syndrome; I11.0 Hypertensive heart disease with heart failure; I50.30 Unspecified diastolic (congestive) heart failure; Z86.16 Personal history of COVID-19; Z79.4 Long term (current) use of insulin; Z79.01 Long term (current) use of anticoagulants; Z95.0 Presence of cardiac pacemaker; Z89.421 Acquired absence of other right toe(s)
CPT/HCPCS: 36680; 92950; 99285